=== PATIENT | male | born 1965 | race Caucasian/White ===

== ENCOUNTER 2019-05-02 07:47 | Emergency (ER) | payer MEDICAID, SELFPAY ==
[2019-05-02 07:55] VITALS: BP 136/69; PULSE 82; RESP 16; TEMP 37.4; O2SAT 98
--- NOTE | 2019-05-02 07:56 | ED.GENADUL_ITS ---
Discharge Plan Disposition Patient Disposition: HOME Condition: Fair Discharge Details Chief Complaint: Allergic Clinical Impression: Sting from hornet, wasp, or bee, Allergic reaction Primary Care Provider: Jack Talavera ED Provider: Tess Gómez Home Meds and New Rx's Prescriptions: New prednisone 20 mg tablet 40 mg PO DAILY Qty: 8 RF: 0 Continued indomethacin 50 mg capsule 50 mg PO BID RF: 0 lisinopril 40 MG tablet 1 tab PO DAILY Qty: 90 RF: 4 rosuvastatin [Crestor] 10 MG tablet 10 mg PO DAILY Qty: 90 RF: 3 metformin 500 MG tablet 500 mg PO DAILY Qty: 90 RF: 4 ibuprofen 800 MG tablet 800 mg PO TID Qty: 30 RF: 0 Discharge Instructions Instructions: General Allergic Reaction (ED) Additional Instructions: Encourage hydration. May try cool compresses to affected area. May continue with Benadryl to help with symptomatic management. Please use Benadryl as prescribed. Please follow-up with primary care next week for reevaluation. If you develop fever/chills, facial pain, difficulty breathing, shortness of breath, rash or other new/worsening symptoms please seek care urgently once again. Please follow your diabetic, starts to increase her glucose. Referrals: Jack Talavera [Primary Care Provider] - Medical Decision Making Patient is a 54-year-old male, accompanied by his , chief complaint of his stating he sustained yesterday. States he was stung twice by wasps in the left eye. The area of sting is visible today. States he took Benadryl yesterday and the swelling seemed to come down some. However, he woke this morning with increased swelling once again. Swelling extends from the inferior aspect of the left eye down the cheek. He is concerned that he feels some swelling in the left side of his neck. Is concerned that this may lead to potential airway compromise. On exam, patient does have notable swelling. The eye itself appears normal. Good extraocular movements. No area of fluctuance. Nontender. Afebrile. No stridor or wheezing. No rash elsewhere. Patient reports that he is a prediabetic and is on metformin. We did discuss plus minus of steroids. At this point, he will move forward with steroids but advised that he adhere to his diabetic diet strictly during this time we discussed this may cause elevation of his sugars. He is given strict return precautions. We will follow-up with primary care next week for reevaluation. All his questions and concerns were addressed and he is in agreement this plan. HPI General Mode of arrival: ambulatory . Date/Time Provider Initiated Documentation: 05/02/19 07:56 . Limitations to Documentation: no limitations . Information obtained by: patient, family and RN notes reviewed . History of Present Illness 54 year old M presents to the emergency department with the chief complaint of wasp sting under left eye, described as mild, with intensity rated at 3. Quality is described as aching, and is localized to the face. Patient reports no radiation. Patient started experiencing this day(s) (1) and it has been constant. No relieving factors improve symp epi(s), Other factors that worsen symptoms (swelling worse after laying supine last night) . Patient notes no other symptoms.; denies chest pain, fever/chills, nausea/vomiting, rash and shortness of breath. Patient did receive the following treatments prior to arrival, other (benadryl) Related Data Home Medications Medication Instructions Recorded Confirmed lisinopril 1 tab PO DAILY #90 tab-cap 08/28/16 05/02/19 rosuvastatin [Crestor] 10 mg PO DAILY #90 tab-cap 12/14/16 05/02/19 ibuprofen 800 mg PO TID #30 tab 04/24/17 05/02/19 metformin 500 mg PO DAILY #90 tab-cap 08/07/17 05/02/19 indomethacin 50 mg capsule 50 mg PO BID 06/04/18 05/02/19 prednisone 40 mg PO DAILY #8 tab 05/02/19 Previous Rx's Medication Instructions Recorded ibuprofen 800 mg PO TID #30 tab 04/24/17 metformin 500 mg PO DAILY #90 tab-cap 08/07/17 prednisone 40 mg PO DAILY #8 tab 05/02/19 Allergies Allergy/AdvReac Type Severity Reaction Status Date / Time hydrochlorothiazide Allergy Severe ITCHING Unverified 05/02/19 07:59 losartan Allergy Severe TONGUE Unverified 05/02/19 07:59 SWELLING Sulfa (Sulfonamide Allergy Severe lips swell Unverified 05/02/19 07:59 Antibiotics) amlodipine AdvReac Mild LEG Unverified 05/02/19 07:59 SWELLING metoprolol AdvReac Unknown FATIGUE Unverified 05/02/19 07:59 verapamil AdvReac Unknown LIGHT-HEADE Unverified 05/02/19 07:59 DNESS Review of Systems Constitutional Constitutional: Reports as per HPI, Denies chills, Denies fever(s) and Denies headache(s) Eyes Eyes: Reports as per HPI, Denies eye discharge and Denies irritation ENT Ears, Nose, Mouth, and Throat: Reports as per HPI and Denies headache(s) Cardiovascular Cardiovascular: Reports as per HPI, Denies chest pain and Denies dyspnea Respiratory Respiratory: Reports as per HPI and Denies dyspnea Gastrointestinal Gastrointestinal: Reports as per HPI, Denies abdominal pain, Denies change in bowel habits, Denies nausea and Denies vomiting Integumentary/Breasts Skin/Breast: Reports as per HPI, Denies rash, Reports skin pain and Reports skin swelling Neurologic Neurologic: Reports as per HPI and Denies headache(s) [facility] Medical History Cervical radicular pain Colon polyps DM (diabetes mellitus) Fatty liver Globus pharyngeus HTN (hypertension) EDMOND (obstructive sleep apnea) Reflux esophagitis TMJ (temporomandibular joint disorder) Surgical History Colonoscopy - MAC (08/31/16) 09/28/14 EGD - MAC (08/31/16) 09/28/14 lateral patellar release (~2007) Open Carpal Tunnel release (~06/2003) right Social History Smoking/Tobacco Use Status: Never Alcohol Intake: current Alcohol Intake frequency: a few times a week Drug use: Never Household members: spouse and children Housing: house Number of Children: 3 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 spot of sting, no fluctuance 2. area of swelling Mouth: oral mucosae normal, lip normal, tongue normal, oropharynx normal and moist mucous membranes Teeth and gingiva: dentition normal Throat: posterior oropharynx normal, tonsils normal and uvula midline Eyes General: appearance normal, both eyes and all related structures Neck Neck: normal visual inspection, full ROM, no lymphadenopathy and no meningeal signs Resp Effort & Inspection: normal respiratory effort, able to speak in complete sentences and no respiratory distress Auscultation: clear to auscultation bilaterally, no rales, no rhonchi and no wheezes Cardio Rate: regular rate Rhythm: regular rhythm Heart Sounds: S1 normal and S2 normal Skin General skin exam: no erythema Neuro General: alert and awake Cognition: normal cognition Speech: speech normal Gait: normal gait Psych Appearance: grossly normal and well kempt Mental Status: mental status grossly normal Speech and Movement: speech and movement normal
== END 2019-05-02 08:25 | disposition home or self-care (01) ==
PROVIDERS: Emergency Provider Physician Assistant; PCP Specialist/Technologist Athletic Trainer
DX: T63.461A Toxic effect of venom of wasps, accidental (unintentional), initial encounter (principal); R22.0 Localized swelling, mass and lump, head
CPT/HCPCS: 99283

== ENCOUNTER 2019-08-18 11:16 | Outpatient (CLI) | payer MEDICAID, SELFPAY ==
[2019-08-18 13:24] LABS: CREATININE 0.93 mg/dL (0.70-1.30); Calculated LDL 73 mg/dL; Cholesterol 142 mg/dL (<200); HDL Cholesterol 52 mg/dL (40-60); Triglyceride 87 mg/dL (<150)
[2019-08-18 14:40] LABS: Hemoglobin A1C 6.6 % (3.8-5.6)
[2019-08-19 12:21] LABS: PSA, Screening 0.4 ng/mL (0.0-3.5)
== END 2019-08-18 11:36 ==
PROVIDERS: PCP Nurse Practitioner; Visit Provider Nurse Practitioner
DX: E11.9 Type 2 diabetes mellitus without complications (principal); E78.5 Hyperlipidemia, unspecified; I10 Essential (primary) hypertension; Z12.5 Encounter for screening for malignant neoplasm of prostate
CPT/HCPCS: 36415; 80061; 84153; 82565; 83036; 84132

== ENCOUNTER 2020-09-14 03:42 | Outpatient (CLI) | payer MEDICAID, SELFPAY ==
[2020-09-14 13:21] LABS: ALT 34 U/L (16-63); AST 22 U/L (15-37); Albumin 3.9 g/dL (3.4-5.0); Alkaline Phosphatase 49 U/L (46-116); Bilirubin, Direct 0.14 mg/dL (0.00-0.20); Bilirubin, Total 0.6 mg/dL (0.2-1.0); Potassium 4.7 mmol/L (3.5-5.1); Total Protein 7.1 g/dL (6.4-8.2)
[2020-09-14 13:23] LABS: Hemoglobin A1C 6.5 % (<5.7)
[2020-09-14 13:38] LABS: Calculated LDL 78 mg/dL (<100); Cholesterol 135 mg/dL (<200); HDL Cholesterol 39 mg/dL (40-60); Triglyceride 92 mg/dL (<150)
== END 2020-09-14 03:43 | disposition home or self-care (01) ==
LOC: LOS 03:43
PROVIDERS: PCP Nurse Practitioner; Visit Provider Nurse Practitioner
DX: E78.00 Pure hypercholesterolemia, unspecified (principal); E11.9 Type 2 diabetes mellitus without complications; I10 Essential (primary) hypertension
CPT/HCPCS: 36415; 80061; 80076; 82565; 83036; 84132

== ENCOUNTER 2020-10-24 09:26 | Outpatient (CLI) | payer MEDICAID, SELFPAY ==
--- NOTE | 2020-10-24 08:00 | DI.RAD_ITS ---
EXAM: XR KNEE RT 4V AP,LAT,ROSIE,PAT CLINICAL HISTORY: right knee pain. TECHNIQUE: 2D digital imaging was performed. COMPARISON: CR RIGHT KNEE LIMITED 1 OR 2 VIEW from 03/06/2017 FINDINGS: There is no evidence of fracture nor prominent joint effusion. However, there has been progression o f degenerative changes, most evident in the medial compartment. Also moderate degenerative changes i n the patellofemoral compartment and mild degenerative changes in the lateral compartment. No osseous lesions. IMPRESSION: Progression of degenerative changes when compared to 2017. DATA REPOSITORY: RADIATION DOSE DELIVERED:
== END 2020-10-24 09:27 | disposition home or self-care (01) ==
LOC: DIORS 09:32
PROVIDERS: PCP Nurse Practitioner; Referring Provider Nurse Practitioner; Visit Provider Student in an Organized Health Care Education/Training Program
DX: M17.11 Unilateral primary osteoarthritis, right knee (principal)
CPT/HCPCS: 73564

== ENCOUNTER 2020-11-02 02:38 | Outpatient (CLI) | payer MEDICAID, SELFPAY ==
--- NOTE | 2020-11-02 07:00 | DI.MRI_ITS ---
EXAM: MR CERVICAL SPINE WO CLINICAL HISTORY: worsenIng neck pain and radiculopathy,CERVICAL STENOSIS,M48.02 TECHNIQUE: Multiplanar multisequence MRI of the cervical spine was performed without intravenous con trast. COMPARISON: CR CERV SP.WITH OBL OR FLEX/EXT from 09/14/2015 FINDINGS: Review of September 2015 plain films reveals left-sided Luschka joint osteophytes at C6-7 level and ch ronic degenerative disc disease changes at C4-5, C5-6, and C6-7. There are no more recent plain film s available time this MRI interpretation MRI FINDINGS: CERVICOMEDULLARY JUNCTION: Intact with no evidence of cerebellar tonsillar ectopia. No obvious abnor mality of the odontoid process. No evidence of Chiari 1 malformation. CERVICAL SPINAL CORD: There is no abnormal signal in the cervical spinal cord and no evidence of foca l cord atrophy nor focal cord swelling. OSSEOUS:There are no cervical fractures evident. No significant osseous lesions in the cervical vert ebrae. INDIVIDUAL LEVELS: C2-3: No disc herniation nor central canal stenosis. No foraminal stenosis. No prominent facet arthr opathy. C3-4: Relatively preserved disc height. Minimal annular bulging. No prominent disc herniation. Wayne tral canal dimensions within normal limits.Moderate facet arthropathy on the right side. Left facet joint unremarkable. Mild foraminal narrowing. C4-5: Mild disc space narrowing. Mild annular bulging.. No dominant disc herniation. Central canal dimensions are lower normal.Small left-sided Luschka joint osteophytes. Mild narrowing of the exiti ng left neural foramen. No facet arthropathy evident at this level. C5-6: Moderate disc space narrowing. Anterior osseous lipping. Posteriorly there is no evidence of significant disc herniation or central spinal canal stenosis. Left-sided Luschka joint osteophyte no jamil at this level with mild narrowing of the exiting left neural foramen. Right neural foramen is pa tent. Mild facet joint degenerative changes. C6-7: Advanced chronic disc space narrowing. Anterior osseous lipping. Broad annular bulging. Bila teral Luschka joint osteophytes. Mild central spinal canal stenosis. Mild degenerative changes in t he facet joints. C7-T1: No disc herniation nor central canal stenosis. Moderate bilateral facet arthropathy.Mild bilat eral foraminal stenosis. IMPRESSION: 1. Multilevel chronic degenerative disc disease as described individually above. 2. No dominant disc herniation. No prominent central canal stenosis. There is multilevel mild asymm etric foraminal stenosis as described above. The neural foraminal narrowing is due to combination of disc height loss and Luschka joint osteophytes and some facet degenerative changes. 3. There is straightening of the cervical curvature which is most probably related to chronic muscle spasm. DATA REPOSITORY:
== END 2020-11-02 02:58 ==
PROVIDERS: PCP Nurse Practitioner; Visit Provider Nurse Practitioner
DX: M48.02 Spinal stenosis, cervical region (principal); F41.9 Anxiety disorder, unspecified; M50.123 Cervical disc disorder at C6-C7 level with radiculopathy
CPT/HCPCS: 72141

== ENCOUNTER 2020-12-09 03:03 | Outpatient (CLI) | payer MEDICAID, SELFPAY ==
--- NOTE | 2020-12-09 07:00 | DI.CT_ITS ---
Exam(s) CT ABDOMEN PELVIS W EXAM: CT ABDOMEN PELVIS W CLINICAL HISTORY: abd pain luq ,llq,R10.9 TECHNIQUE: Imaging Protocol: Axial computed tomography images with coronal and sagittal reformatted images were created and reviewed CONTRAST MATERIAL: Intravenous: Omnipaque 350 Contrast volume:100 mL Oral: Yes COMPARISON: CT UPPER ABD WITH CONTRAST (P) from 02/28/2012 FINDINGS: The examination is limited due to patient motion artifact. ABDOMEN: Lung Bases: Scarring or atelectasis in the left lingula. Liver: Normal density. Stable 2.8 cm left hepatic cyst. Portal, Superior Mesenteric, and Splenic Veins: Unremarkable. Gallbladder and Biliary Tract: No radiodense calculus or dilation. Pancreas: Normal density, no abnormal calcifications or inflammatory process. Spleen: Normal. Adrenals: No masses seen. Kidneys: Normal size, contour and axis. No radiodense stones or obstructive uropathy. No masses seen. Abdominal Aorta: Abdominal portion non-dilated. Mild atherosclerosis. Bowel: No obstruction or bowel wall thickening. Appendix is unremarkable. Mild sigmoid diverticulosis , but no evidence of acute diverticulitis. Peritoneal Cavity: No ascites, collection or mesenteric inflammatory response. No free air. Lymph Nodes: Within normal limits. Bones: Within normal limits for the patient's age. Soft Tissues: Unremarkable. PELVIS: Bladder: Symmetric distention, no gross wall thickening. Reproductive Organs: There is asymmetric enlargement of the left seminal vesicle measuring 3.2 x 3.3 cm. The prostate gland is enlarged measuring 4.9 x 4 x 2.8 cm. Lymph Nodes: Within normal limits. Bones: Within normal limits for the patient's age. IMPRESSION: 1. Colonic diverticulosis but no evidence of acute diverticulitis. 2. No acute abdominal or pelvic process. 3. Prostatic enlargement and enlargement of the left seminal vesicle. Please correlate clinically. If further imaging is warranted an MRI. Incidental Findings RADIATION DOSE DELIVERED: 1,654.13mGy.cm Total DLP DATA REPOSITORY: All CT scans at this facility are submitted to the National Radiology Data Registry (NRDR) Dose Index Registry (DIR) with the [employer] (A[employer]). RADIATION OPTIMIZATION: All CT scans at this facility use at least one of these dose optimization te chniques: automated exposure control; mA and/or kV adjustment per patient size (includes targeted exa ms where dose is matched to clinical indication); or iterative reconstruction.
[2020-12-09] MEDS: Omnipaque 350 MG/ML 50 ML BTL IJ (08:38)
[2020-12-09] MEDS: Breeza Beverage 473 ML BTL PO (08:39)
[2020-12-09 08:50] LABS: CREATININE 0.9 mg/dL (0.70-1.30)
[2020-12-09] MEDS: Omnipaque 350 MG/ML 100 ML BTL IJ (09:46)
[2020-12-09] MEDS: Normal Saline - Diluent 50 ML VIAL IV (09:47)
== END 2020-12-09 03:23 ==
PROVIDERS: PCP Nurse Practitioner; Visit Provider Nurse Practitioner
DX: R10.12 Left upper quadrant pain (principal); R10.32 Left lower quadrant pain; N40.0 Benign prostatic hyperplasia without lower urinary tract symptoms; K57.30 Diverticulosis of large intestine without perforation or abscess without bleeding; N49.0 Inflammatory disorders of seminal vesicle
CPT/HCPCS: 74177; 82565; J3490; Q9967

== ENCOUNTER 2021-01-17 08:42 | Outpatient (CLI) | payer MEDICAID, SELFPAY ==
--- NOTE | 2021-01-17 06:00 | DI.RAD_ITS ---
Exam(s) XR PAIN CLINIC CERVICAL SP 2V EXAM: XR PAIN CLINIC CERVICAL SP 2V CLINICAL HISTORY: Dx :Cervical Spondylosis TECHNIQUE: 2D and realtime digital imaging was performed. CONTRAST MATERIAL: Refer to procedure report. COMPARISON: No exams were available for comparison FINDINGS: Fluoroscopy was provided for Dr. Frost during the performance of a cervical medial branch block. Suzette anna refer to the procedure report for complete details. Ka,r=12.54 mGy IMPRESSION:
[2021-01-17 08:55] VITALS: BP 141/71; PULSE 72; RESP 18; TEMP 36.7; O2SAT 98
[2021-01-17 09:49] VITALS: BP 134/75; PULSE 75; RESP 20; O2SAT 95
[2021-01-17] MEDS: Bupivacaine 0.5% Pres-Free 10 ML VIAL IJ (09:49)
[2021-01-17] MEDS: Omnipaque 240 MG/ML 50 ML BTL IJ (09:49)
--- NOTE | 2021-01-17 09:53 | PDOC.PAIN_ITS ---
Pain Clinic Procedure Note Procedure Note Procedure Note: CERVICAL MEDIAL BRANCH BLOCKS Korey Alejandre has been referred to the [facility] for cervical medial branch blocks. Pre-operative diagnosis: cervical spondylosis Post-operative diagnosis: same as above COMMENTS: patient has right sided neck pain that extends to the base of his skull that results in a occipital headache with radiation to right hinduism, as well as radiating down to right trapezius, periscapular region. patient was evaluated by Ms Grace Salas APRN in clinic and referred for diagnostic right C3, C4, C5, C6, C7 cervical medial branch nerve block. Patient was interviewed and the medical record reviewed. There were no medical, pharmacologic, radiographic or other structural contraindications to attempting fluoroscopically guided local anesthetic cervical medial branch blocks. Risks and expected side effects as well as potential benefit of the procedure were reviewed and voiced concerns addressed. The printed consent form was signed and witnessed. Standard time-out procedure was performed. Patient was placed in the prone position on the fluoroscopy table and automated blood pressure cuff and pulse oximeter applied. The skin entry points for approaching the anatomic target points of the segmental medial branches of right C3, C4, C5, C6, C7 were identified with fluoroscopy and marked. Following thorough Chlorhexadine preparation of the skin and draping and 1% lidocaine infiltration of the skin entry points and subcutaneous tissues, a 25 gauge spinal needle was placed under fluoroscopic guidance down on to the target point for each respective segmental medial branch. Position was confirmed in A/P and leteral views with 0.25ml of omnipaque 240 injected at each level. This revealed appropriate spread and no vascular uptake. At each point 0.3ml 0.5% bupivicaine was injected. Vital signs were stable throughout the procedure and were as recorded in the docflowsheet by the nursing staff. Follow up plans and appointments were discussed and patient was instructed to keep careful note of how the usual pain was modified by these injections. Specifically, the patient was asked to keep a pain diary for the next 24 hours using a numeric pain scale of 0-10 and report these results at the follow-up visit. Post procedure instruction was given as documented in the nursing documentation and having met discharge criteria, and was discharged from the [facility]. Based on the medial branches blocked today, if they patient has adequate relief and we are able to proceed to radiofrequency ablation, the treatment should result in the denervation of the right C3/4, C4/5, C5/6, C6/7. We would expect to denervate a total of 4 facets during the radiofrequency ablation. COMMENTS: patient tolerated procedure well. Pre-procedure pain level 6/10. post- procedure pain level 1/10. Agustin Frost MD Pain Management CC: Karo Vázquez, PhD BLUNGER MACHINE OPERATOR
== END 2021-01-17 08:43 | disposition home or self-care (01) ==
LOC: PC 08:42
PROVIDERS: PCP Nurse Practitioner; Visit Provider Internal Medicine
DX: M47.812 Spondylosis without myelopathy or radiculopathy, cervical region (principal)
CPT/HCPCS: 64490; 64491; 64492; 72040; Q9967

== ENCOUNTER 2021-02-09 08:47 | Outpatient (CLI) | payer MEDICAID, SELFPAY ==
--- NOTE | 2021-02-09 06:00 | DI.RAD_ITS ---
Exam(s) XR PAIN CLINIC CERVICAL SP 2V EXAM: XR PAIN CLINIC CERVICAL SP 2V CLINICAL HISTORY: Dx: Cervical Spondylosis TECHNIQUE: 2D and realtime digital imaging was performed. Radiologist not present. CONTRAST MATERIAL: None. COMPARISON: No exams were available for comparison FINDINGS: Fluoroscopy was provided for pain management therapy, apparently cervical medial branch block. . Pl ease refer to the procedure report for complete details. No submitted images. Please refer to procedure report or details. Cumulative dose: josh Tubbs=13.1 mGy Total fluoroscopy time 53.4 seconds IMPRESSION: RADIATION DOSE DELIVERED:
[2021-02-09 08:57] VITALS: BP 134/60; PULSE 71; RESP 20; TEMP 37.1; O2SAT 98
[2021-02-09 09:46] VITALS: BP 127/67; PULSE 74; RESP 19; O2SAT 98
--- NOTE | 2021-02-09 09:46 | PDOC.PAIN ---
Pain Clinic Procedure Note Procedure Note Procedure Note: CERVICAL MEDIAL BRANCH BLOCKS #2 Korey Alejandre has been referred to the [facility] for cervical medial branch blocks. COMMENTS: Pre-procedure pain VAS was 7/10. He did well with his first CMBB on 01/19/[address] Frost. Patient was interviewed and the medical record reviewed. There were no medical, pharmacologic, radiographic or other structural contraindications to attempting fluoroscopically guided local anesthetic cervical medial branch blocks. Risks and expected side effects as well as potential benefit of the procedure were reviewed and voiced concerns addressed. The printed consent form was signed and witnessed. Standard time-out procedure was performed. Patient was placed in the Left lateral decubitus position on the fluoroscopy table and automated blood pressure cuff and pulse oximeter applied. The skin entry points for approaching the anatomic target points of the segmental medial branches of Right C3, C4, C5, C6, and C7 were identified with fluoroscopy and marked. Following thorough Chlorhexadine preparation of the skin and draping and 1% lidocaine infiltration of the skin entry points and subcutaneous tissues, a 25 gauge spinal needle was placed under fluoroscopic guidance down on to the target point for each respective segmental medial branch. Position was confirmed in A/P and leteral views with 0.25ml of omnipaque 240 injected at each level. This revealed appropriate spread and no vascular uptake. At each point 0.3ml 2% Lidocaine was injected. Vital signs were stable throughout the procedure and were as recorded in the docflowsheet by the nursing staff. Follow up plans and appointments were discussed and patient was instructed to keep careful note of how the usual pain was modified by these injections. Specifically, the patient was asked to keep a pain diary for the next 24 hours using a numeric pain scale of 0-10 and report these results at the follow-up visit. Post procedure instruction was given as documented in the nursing documentation and having met discharge criteria, and was discharged from the [facility]. Based on the medial branches blocked today, if they patient has adequate relief and we are able to proceed to radiofrequency ablation, the treatment should result in the denervation of the right C3-C4, C4-C5, C5-C6, and C6-C7 FACET JOINTS. We would expect to denervate a total of 4 facets during the radiofrequency ablation. COMMENTS: Post-procedure pain VAS was 0/10. He will call back with his 1-4 hour post-procedure pain logs. Alvaro Romeo DO, MPH Pain Management CC: Karo Vázquez, PhD ANIMAL RIDE ATTENDANT
[2021-02-09] MEDS: Lidocaine 2% Pres-Free 5 ML VIAL IJ (09:47)
[2021-02-09] MEDS: Omnipaque 240 MG/ML 50 ML BTL IJ (09:48)
== END 2021-02-09 08:48 | disposition home or self-care (01) ==
LOC: PC 08:47
PROVIDERS: PCP Nurse Practitioner; Visit Provider Preventive Medicine Occupational Medicine
DX: M47.812 Spondylosis without myelopathy or radiculopathy, cervical region (principal)
CPT/HCPCS: 64490; 64491; 64492; 72040; Q9967

== ENCOUNTER 2021-09-22 02:10 | Outpatient (CLI) | payer MEDICAID, SELFPAY ==
[2021-09-22 07:27] LABS: Hemoglobin A1C 6.3 % (<5.7)
[2021-09-22 08:34] LABS: ALT 38 U/L (16-63); AST 16 U/L (15-37); Alkaline Phosphatase 38 U/L (46-116); Anion Gap 9.8 mmol/L (3-11); BUN 16 mg/dL (7-18); Bilirubin, Total 0.4 mg/dL (0.2-1.0); CO2 26.2 mmol/L (21.0-32.0); CREATININE 0.9 mg/dL (0.70-1.30); Calcium 8.9 mg/dL (8.5-10.1); Calculated LDL 82 mg/dL (<100); Chloride 103 mmol/L (98-107); Cholesterol 152 mg/dL (<200); Glucose 111 mg/dL (74-106); HDL Cholesterol 49 mg/dL (40-60); Potassium 4.7 mmol/L (3.5-5.1); Sodium 139 mmol/L (136-145); Triglyceride 106 mg/dL (<150)
[2021-09-25 09:31] LABS: PSA, Screening 0.4 ng/mL (0.0-3.5)
== END 2021-09-22 02:11 | disposition home or self-care (01) ==
LOC: LBO 02:11
PROVIDERS: PCP Nurse Practitioner; Visit Provider Nurse Practitioner
DX: E78.00 Pure hypercholesterolemia, unspecified (principal); E11.9 Type 2 diabetes mellitus without complications; I10 Essential (primary) hypertension; Z12.5 Encounter for screening for malignant neoplasm of prostate
CPT/HCPCS: 36415; 80053; 80061; 84153; 83036

== ENCOUNTER 2021-10-11 13:41 | Outpatient (CLI) | payer MEDICAID, SELFPAY ==
--- NOTE | 2021-10-11 06:00 | DI.RAD_ITS ---
Exam(s) XR PAIN CLINIC LUMBAR SP 2V EXAM: XR PAIN CLINIC LUMBAR SP 2V CLINICAL HISTORY: Dx: Lumbar Radiculopathy TECHNIQUE: 2D and realtime digital imaging was performed. COMPARISON: No exams were available for comparison FINDINGS: C-arm fluoroscopy was utilized by Dr. Romeo during apparent lumbar epidural injection. Hard copy show s needle placement and epidural injection at what appears to be the L5-S1 level. IMPRESSION: RADIATION DOSE DELIVERED: josh Tubbs=20.1 mGy
--- NOTE | 2021-10-11 06:00 | DI.RAD_ITS ---
Exam(s) XR PAIN CLINIC CERVICAL SP 2V EXAM: XR PAIN CLINIC CERVICAL SP 2V CLINICAL HISTORY: Dx: Cervical Spondylosis TECHNIQUE: 2D and realtime digital imaging was performed. COMPARISON: No exams were available for comparison FINDINGS: C-arm fluoroscopy utilized by Dr. Romeo during reported cervical radiofrequency ablation. Hard copy s how needle placement at what appear to be the see 2 3 and C3-4 levels. IMPRESSION: RADIATION DOSE DELIVERED: josh Tubbs=26.8 mGy
[2021-10-11 13:58] VITALS: BP 120/80; PULSE 75; RESP 20; TEMP 36.7; O2SAT 96
[2021-10-11] MEDS: fentaNYL 100 MCG/2 ML VIAL IVP (14:45)
[2021-10-11] MEDS: Midazolam 2 MG/2 ML VIAL IVP (14:46)
[2021-10-11] MEDS: Lactated Ringers 1,000 ML 80 ML IV (15:07)
--- NOTE | 2021-10-11 15:37 | PDOC.PAIN ---
Pain Clinic Procedure Note Procedure Note Procedure Note: Cervical Radiofrequency with Coolief Machine PROCEDURE NOTE Date of Service: October 11, 2021 Patient: Korey Alejandre Provider: Alvaro Romeo DO, MPH Pre Operative Diagnosis: Cervical Spondylosis without Myelopathy Post Operative Diagnosis: Same Pre-procedure pain: VAS 5/10 PROCEDURE: 1. Right C3-C4 facet joint radiofrequency denervation 2. Right C4-C5 facet joint radiofrequency denervation 3. Right C5-C6 facet joint radiofrequency denervation 4. Right C6-C7 facet joint radiofrequency denervation Korey Alejandre was brought to the operating room and placed on the exam table in a comfortable lateral recumbant position. The place for the needle placement was obtained by manual palpation as well as radiographic confirmation. The sterile field was prepped by chlorhexidine and sterile drapes. Local anesthesia, both superficial and deep was provided by local infiltration of 3 ml Lidocaine 1%. Using fluoroscopic guidance, A 17g 50 mm radiofrequency introducer needle with a 2 mm active tip was placed overlying the right C3 cervical vertebra from the lateral approach and was advanced until bony contact was felt with the articular pillar. Attempted aspiration revealed no blood or cerebrospinal fluid. Motor testing was then performed with 2.0 volts and no upper extremity motor stimulation was observed. 1 ml of 2% Lidocaine was injected through the RF needle. A radiofrequency lesion of the right medial branch of C3 was then performed at 80 degrees Celsius for 2 minutes and 30 seconds. The same procedure was repeated for RIGHT C4, C5, C6, and C7 medial branches. POST PROCEDURE EVALUATION: IMPRESSION: 1. Medication given is documented in the MAR 2. RTC as needed. Follow up plan: We will call the patient in 1-3 weeks. 3. Estimated Blood Loss: <5ml 4. Fluoroscopy time: Documented in the EMR Follow up plans and appointments were discussed with the Korey . Post procedure instruction was given as documented in nursing documentation and having met discharge criteria, Korey was discharged from the Pain Management Center. COMMENTS: No apparent complications. Post-procedure pain: VAS= 0/10. I personally performed this entire procedure. Alvaro Romeo DO, MPH Attending Physician [facility]
--- NOTE | 2021-10-11 15:42 | PDOC.PAIN_ITS ---
Pain Clinic Procedure Note Procedure Note Procedure Note: Lumbar Epidural Steroid Injection Procedure Note COMMENTS: Seen by his spine surgeon, who recommended this procedure. Dx: Lumbosacral radiculopathy Pre-procedure pain VAS = 6/10. Korey Alejandre has been referred to the [facility] for lumbar epidural steroid injection. The patient was greeted by the nurse who verified patients name and . Patient was then taken to the fluoroscopy suite. The patient was interviewed and the medial record reviewed. There were no medical, pharmacologic, radiographic, or other structural contraindications to attempting fluoroscopically guided lumbar epidural steroid injection. Risks and expected side effects as well as potential benefits of the procedure were reviewed and voiced concerns expressed. The patient consent form was signed and witnessed. Standard patient time-out procedure was performed. The patient was placed in the prone position on the fluoroscopy table and automated blood pressure cuff and pulse oximeter applied. The skin entry point for entering/approaching the epidural space at L5-S1 and marked. Following thorough chlorhexadine preparation of the skin and draping and 1% lidocaine infiltration of the skin entry point and subcutaneous tissues, a 18 gauge Touhy needle was placed under fluoroscopic guidance and with loss of resistance technique into the epidural space. Needle tip placement and depth were aided and confirmed by fluoroscopy. There was no paresthesia or return of blood or CSF through the needle. 1 cc's of Omnipaque 240 was injected with clear epidural s pread confirmed with fluoroscopy. 40mg depomedrol was injected. There was not any unusual discomfort expressed by Korey Alejandre. Patient's vital signs were stable throughout the procedure and were as recorded in nursing records. Follow up plans and appointments were discussed with patient. Post procedure instruction was given as documented in nursing records and having met discharge criteria and was discharged from the [facility]. COMMENTS: If this procedure is helpful, it can be completed up to 3 times per 12 months. Post-procedure pain VAS = 0/10. Alvaro Romeo DO, MPH [facility]
[2021-10-11] MEDS: Omnipaque 240 MG/ML 50 ML BTL IJ (15:53)
[2021-10-11] MEDS: Lidocaine 2% Pres-Free 5 ML VIAL IJ (15:53)
[2021-10-11] MEDS: methylPREDNISolone ACETATE 40 MG/ML VIAL (15:53)
[2021-10-11] MEDS: Dexamethasone Sod. Phos./Pres-Free 10 MG/ML VIAL IJ (15:54)
[2021-10-11] MEDS: Bupivacaine 0.5% Pres-Free 10 ML VIAL IJ (15:54)
== END 2021-10-11 13:42 | disposition home or self-care (01) ==
LOC: PC 13:41
PROVIDERS: PCP Nurse Practitioner; Visit Provider Preventive Medicine Occupational Medicine
DX: M54.17 Radiculopathy, lumbosacral region (principal); M47.812 Spondylosis without myelopathy or radiculopathy, cervical region
CPT/HCPCS: 64633; 64634; 62323; 72040; 72100; J1030; J2250; J3010; Q9967

== ENCOUNTER 2022-05-08 14:48 | Outpatient (CLI) | payer MEDICAID, SELFPAY ==
--- NOTE | 2022-05-08 14:00 | DI.RAD_ITS ---
Exam(s) XR SHOULDER LT COMPLETE 2+V EXAM: XR SHOULDER LT COMPLETE 2+V CLINICAL HISTORY: left shoulder pain. TECHNIQUE: 2D digital imaging was performed of the left shoulder. Two images were obtained. AP, Gr ashey, Y-view and axillary views were obtained. COMPARISON: No exams were available for comparison FINDINGS: BONES: No acute fracture is present. No bony destructive lesion is seen. JOINTS: No dislocation present. Moderate degenerative changes are seen at the acromioclavicular joint . Mild degenerative changes are seen at the glenohumeral joint. SOFT TISSUE: Normal. IMPRESSION: Degenerative changes of the left shoulder. DATA REPOSITORY: RADIATION DOSE DELIVERED:
== END 2022-05-08 14:49 | disposition home or self-care (01) ==
LOC: DIORS 14:48
PROVIDERS: PCP Nurse Practitioner; Referring Provider Nurse Practitioner; Visit Provider Student in an Organized Health Care Education/Training Program
DX: M19.012 Primary osteoarthritis, left shoulder (principal)
CPT/HCPCS: 73030

== ENCOUNTER → 2022-05-31 03:04 | Outpatient (CLI) | payer MEDICAID, SELFPAY ==
--- NOTE | 2022-05-31 07:00 | DI.MRI_ITS ---
Exam(s) MR UPPER JOINT LT WO CLINICAL HISTORY: LEFT SHOULDER PAIN,lt rotator cuff rita, m75.102. TECHNIQUE: Multiplanar multisequence MRI was performed. COMPARISON: None FINDINGS: MR examination of the shoulder was performed according to the usual protocol. There is no significant effusion of the glenohumeral joint. No fluid in the subacromial subdeltoid bu rsa. Bones and labrum: There are severe degenerative changes at the acromioclavicular joint with markedly of normal signal in adjacent bones period minimal superior impingement on supraspinatus noted period. Glenoid labrum appears intact. Rotator cuff: There is abnormal signal in the subscapularis tendon with probable tear in the multi p ennate insertion. There is abnormal signal associated also with the biceps anchor in this region per iod no gross overall retraction of the subscapularis noted but there is probably a full-thickness non retracted tear. There is abnormal signal in the rotator interval with no gross free fluid collection seen. Supraspinatus tendon shows mildly abnormal signal distally with the probable tiny partial thickness i nferior surface tear at the humeral footprint. Mildly abnormal signal in distal infraspinatus tendon noted as well. Unremarkable appearance of teres minor period. Biceps tendon and anchor: Biceps tendon and anchor show abnormal signal and borders of the tendon are poorly defined, partial-thickness tear not excluded but full-thickness retracted tear does not appea r to be present .. Biceps tendon is normally positioned in the bicipital groove. IMPRESSION: Abnormal signal in anterior structures with probable full-thickness non retracted subscapularis tear with associated abnormal signal of biceps anchor and proximal long head of the biceps tendon and abno rmal signal in rotator interval. Probable tiny undersurface tear of distal supraspinatus tendon. Severe DJD AC joint. DATA REPOSITORY:
== END ==
PROVIDERS: PCP Nurse Practitioner; Visit Provider Student in an Organized Health Care Education/Training Program
DX: M75.102 Unspecified rotator cuff tear or rupture of left shoulder, not specified as traumatic (principal); M19.012 Primary osteoarthritis, left shoulder
CPT/HCPCS: 73221

== ENCOUNTER 2022-08-10 06:56 | Day surgery (SDC) | payer MEDICAID, SELFPAY ==
[2022-08-10 07:17] VITALS: BP 151/80; PULSE 77; RESP 18; TEMP 36.7; O2SAT 97
[2022-08-10] MEDS: Lactated Ringers 1,000 ML 80 ML IV (07:32)
--- NOTE | 2022-08-10 08:11 | W.ANESPRE ---
General Info Date of Service Date Performed: 08/10/22 Height: 5 ft 7.5 in Weight: 119.3 kg Body Mass Index (BMI): 40.6 Surgical Procedure: Operation Date: 08/10/22 08:35 Proposed Procedure Side Surgeon p Harrison Haro MD Meds Allergies and Home Medications Allergies Allergy/AdvReac Type Severity Reaction Status Date / Time hydrochlorothiazide Allergy Severe ITCHING Verified 08/10/22 07:12 losartan Allergy Severe TONGUE Verified 08/10/22 07:12 SWELLING Sulfa (Sulfonamide Allergy Severe lips swell Verified 08/10/22 07:12 Antibiotics) amlodipine AdvReac Mild LEG Verified 08/10/22 07:12 SWELLING metoprolol AdvReac Unknown FATIGUE Verified 08/10/22 07:12 verapamil AdvReac Unknown LIGHT-HEADE Verified 08/10/22 07:12 DNESS Home Medication Medication Instructions Recorded vitamin B complex 1 tab PO DAILY 01/17/21 ibuprofen 800 mg tablet (IBU) 800 mg PO BID PRN 03/16/21 pantoprazole 40 mg tablet,delayed 40 mg PO DAILY #90 tabs 09/05/21 release metformin 750 mg tablet,extended 750 mg PO QPM #90 tabs 09/12/21 release 24 hr fluoxetine 40 mg capsule 40 mg PO DAILY #90 caps 11/09/21 rosuvastatin 10 mg tablet (Crestor) 10 mg PO DAILY #90 tab-caps 04/20/22 fluticasone propionate 50 1 spray intranasal DAILY #15.8 mL 06/12/22 mcg/actuation nasal spray,suspension (Flonase Allergy Relief) triamcinolone acetonide 0.1 % 1 applic topical TID #453.6 grams 06/12/22 topical cream bisacodyl 5 mg tablet,delayed 5 mg PO ONCE #4 tabs 07/30/22 release (Dulcolax (bisacodyl)) polyethylene glycol 3350 17 17 g PO ONCE #238 grams 07/30/22 gram/dose oral powder lisinopril 40 mg tablet 40 mg PO HS 08/09/22 Current Visit Medications: Current Medications Generic Name Dose Route Start Last Admin Trade Name Freq PRN Reason Stop Dose Admin Ringer's Solution 1,000 mls @ 80 mls/hr 08/10/22 06:00 08/10/22 07:32 IV 09/08/22 23:59 80 mls/hr INFUSION GIOVANNY Administration IV Miscellaneous Supplies 1 each 08/10/22 06:00 Iv Access IV 09/08/22 23:59 DIRECTED GIOVANNY Sodium Chloride 0 ml 08/10/22 06:00 Normal Saline Flush 10 Ml Syr IV 09/08/22 23:59 PRN PRN Sodium Chloride 0 ml 08/10/22 06:00 Normal Saline 10 Ml Vial IJ 09/08/22 23:59 DIRECTED PRN Sterile Water 0 ml 08/10/22 06:00 Water,Injection,Sterile 10 Ml Vial IJ 09/08/22 23:59 DIRECTED PRN PFSH Active Problems Active Problems: Problem Status Onset Code Anxiety F41.9 Diabetes mellitus 03/30/15 E11.9 Essential hypertension I10 Increased body mass index R63.8 EDMOND on CPAP 02/15/15 G47.33, Z99.89 Psoriasis 06/30/15 L40.9 Reflux esophagitis K21.0 Tubular adenoma of colon D12.6 Migraine headache without aura G43.009 Cervical stenosis of spinal canal M48.02 BPH (benign prostatic hyperplasia) N40.0 Depressed F32.9 Primary osteoarthritis of right knee M17.11 Cervical spondylosis without myelopathy M47.812 Hyperlipidemia E78.5 Left rotator cuff tear M75.102 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 Gout ELEVATED URIC ACID TMJ (temporomandibular joint disorder) Medical History Comments:: Daily THC; t-1 Surgical History Surgical History Colonoscopy - MAC (08/31/16) 09/28/16- Tubulovillious Adenoma EGD - MAC (08/31/16) 09/28/14 H/O right knee surgery History of back surgery lateral patellar release (~2007) Open Carpal Tunnel release (~06/2003) right and left Tobacco Smoking/Tobacco Use Status: Never Passive smoking exposure: Yes Second hand exposure: Yes Alcohol Alcohol Intake: current Alcohol intake frequency: a few times a month Alcohol type: beer Substance Use Substance use: Daily Substance use type: marijuana Details: Marijuana for pain relief at night. Vital Signs and Lab Results Vital Signs Most Recent Vital Signs in EMR: Most Recent Vital Signs Temp Pulse Resp BP Pulse Ox 36.7 C 77 18 151/80 H 97 08/10/22 07:17 08/10/22 07:17 08/10/22 07:17 08/10/22 07:17 08/10/22 07:17 Point of Care Results Point of Care Results: Finger Stick Blood Glucose 105 08/10/22 07:40 Lab Results Blood Type / Crossmatch: No Data to Display Complete Blood Count: No Data to Display Complete Metabolic Panel: No Data to Display Liver Function Panel: No Data to Display Coagulation Panel: No Data to Display Cardiac Panel: No Data to Display Arterial Blood Gas: No Data to Display Venous Blood Gas: No Data to Display Pancreas Panel: No Data to Display Thyroid Panel: No Data to Display Infectious Disease: No Data to Display Blood Cultures: No Data to Display Toxicology Panel: No Data to Display Imaging and Studies Imaging and Studies Study information below may be from another EMR and interpreted by another provider. Please see original notes in EMR for more complete details. Stress Test Summary: 11/21/2016: Impressions: Normal study after maximal exercise. Summary: 1. Myocardial perfusion imaging: No myocardial perfusion defects noted. 2. The calculated left ventricular ejection fraction after stress: 58%. LV global systolic function is normal. No left ventricular regional motion abnormality. 3. Stress ECG conclusions: The stress ECG is negative. Smith treadmill score: 9. This score predicts a low risk of cardiac events. 4. Stress: The target heart rate was achieved. There is a normal resting blood pressure with an appropriate response to stress. The patient experienced no chest pain during stress. Exercise capacity is average for age. Anesthesia Assessment and Plan Anesthesia History Personal History: No History of Anesthesia Complications Family History: No Family History of Anesthesia Complications Exercise Tolerance Exercise Tolerance: Metabolic Equivalents>4 Pertinent Negatives Pertinent Negatives: No Major Cardiovascular Symptoms or Complaints and No Major Pulmonary Symptoms or Complaints Cardiac & Pulmonary Exam Cardiac Exam: Normal S1/S2 Heart Sounds Pulmonary Exam: Clear Bilateral Breath Sounds Implantable Cardiac Device Does patient have a Pacemaker or an ICD?: No Airway Exam Known Difficult Airway: No Mallampati Class: 1 Mouth Opening: Normal (> 3cm) Thyromental Distance: Greater than 3 cm Neck Range of Motion: Full ROM Neck Circumference: Thick Teeth Condition: Normal Dentition ASA Classification ASA Score: ASA 3 Emergency Case?: No NPO Status NPO Status: NPO Clears >2 hours, Solids >8 hours Anesthesia Plan Resuscitation Status: Full Code Anesthesia Technique: General Anesthesia Airway Planned: Natural Airway Monitors Used: Standard Monitors Preoperative Comments:: Hx EDMOND, compliant with CPAP, also wears TMJ device nightly. Reports to past anesthetic concerns.
[2022-08-10 08:14] VITALS: BMI 40.6
--- NOTE | 2022-08-10 08:39 | BOWEL_PTH ---
PATIENT: Korey Alejandre LOC: [facility] U#:[id number] AGE/SX: 57/M ROOM: RE08/10/[address]: Jack Haro : 1965 BED: DIS: 08/10/2022 SPEC #: [id number] RECD: 08/10/22 12:58 STATUS: ROSI RE #: [id number] DANIEL: 08/10/22 08:[address]: Jack Haro DEPT: Surgical Specimen RECD BY: Sudha Rico ENTERED: 08/10/22 12:59 SP TYPE: Bowel OTHR DR: Moncho Hodges, [employer] Tissues: 1 - BIOPSY BOWEL 2 - BIOPSY BOWEL 3 - BIOPSY BOWEL Procedures: GROSS AND MICRO LEVEL 4 Comments: [id number]
[2022-08-10 09:06] VITALS: BP 121/66; PULSE 63; RESP 16; TEMP 36; O2SAT 95
--- NOTE | 2022-08-10 09:19 | W.ANESPOSTOP ---
Postoperative Evaluation Date, Time and Location Date Performed: 08/10/22 Time Performed: 09:17 Patient Location: Day Surgery Unit Vital Signs Most Recent Imported Vital Signs: Most Recent Vital Signs Temp Pulse Resp BP Pulse Ox 36 C L 63 16 121/66 95 08/10/22 09:06 08/10/22 09:06 08/10/22 09:06 08/10/22 09:06 08/10/22 09:06 Pain Score Most Recent Pain Score: Most Recent Pain Score Pain Level 0 08/10/22 09:06 Assessment Mental Status: Awake (Alert & Oriented to Patient Baseline) Airway and Respiratory Function: Patent airway with normal (patient baseline) respiratory exam Cardiovascular Function: Hemodynamically Stable Hydration Status: Adequately Hydrated Nausea & Vomiting: No Nausea or Vomiting Pain: Pt. Denies Any Pain Peripheral Nerve Block: Patient did not receive a nerve block
--- NOTE | 2022-08-10 09:20 | COLE_ITS ---
Date of service: 08/10/22 Time of Service: 09:20 Colonoscopy Report Procedure Description: Procedures performed: 1. Colonoscopy with snare polypectomy x3 2. Ablation/fulguration/destruction of polyps x1 3. Polypectomy with cold forceps technique x1 Preoperative diagnosis: Surveillance colonoscopy Postoperative diagnosis: Colon polyps, mild sigmoid diverticulosis Surgeon: Poncho Haro Anesthesia: Jessica Indication for procedure: Patient is a 57-year-old man with a personal history of tubulovillous polyps removed previously. He does not have a family history of colorectal cancer/polyps. He denies any new or changing symptoms.. Findings: Terminal ileum was normal. In the cecum a small 2-3 mm sessile polyp was removed with cold forceps technique. In the transverse colon there were 2 3-5 mm sessile polyps close to each other and they were both removed with hot snare technique. In the sigmoid colon there were again to, 3-5 mm sessile polyps removed with hot snare technique. Another smaller 1 was ablated with the tip of the hot snare. Very mild/minimal diverticular disease is present in the sigmoid colon only. Surveillance/follow-up recommendations: 3 years Complications: None Blood loss: Minimal Specimens:?? YES Quality of Prep:?? Good Procedure in detail: Written consent was obtained from the patient who was in agreement with the risks, benefits and indications of the procedure.? We went to the endoscopy suite and laid the patient in left lateral decubitus position.? Anesthesia was administered which was tolerated well.? A timeout was performed and when we are all in agreement we began the procedure. Digital rectal exam and visual examination was performed and within normal limits.? A well?lubricated colonoscope was advanced without difficulty all the way to the cecum identified by the ileocecal valve, and triangular folds and hussain endiceal orifice.? The terminal ileum was intubated and normal. It was then slowly withdrawn.?? Retroflexion was performed in the rectum.? The findings/interventions are noted above. The scope was then removed and the patient tolerated the procedure well and was then taken back to the PACU in hemodynamically stable condition.
[2022-08-10 09:38] VITALS: BP 121/74; PULSE 57; RESP 16; TEMP 36.3; O2SAT 97
== END 2022-08-10 09:50 | disposition home or self-care (01) ==
PROVIDERS: PCP Nurse Practitioner Family; Visit Provider Student in an Organized Health Care Education/Training Program
PROC: 0DJD8ZZ Inspection of Lower Intestinal Tract, Via Natural or Artificial Opening Endoscopic (ICD-10-PCS; CPT 45378; principal; 2022-08-10 08:30)
DX: Z12.11 Encounter for screening for malignant neoplasm of colon (principal); K63.5 Polyp of colon; K57.30 Diverticulosis of large intestine without perforation or abscess without bleeding
CPT/HCPCS: 45380; 45385; 88305

== ENCOUNTER 2022-09-20 11:22 | Day surgery (SDC) | payer MEDICAID, SELFPAY ==
[2022-09-20] VITALS (9 sets, daily range): BP systolic 109–156; BP diastolic 55–100; PULSE 58–70; RESP 15–25; TEMP 36.2–36.6; O2SAT 92–98; BMI 41.4
--- NOTE | 2022-09-20 09:42 | ANES.PREOP_ITS ---
General Info Height: 5 ft 7.5 in Weight: 121.563 kg Body Mass Index (BMI): 41.3 Surgical Procedure: Operation Date: 09/20/22 13:10 Proposed Procedure Side Surgeon p Shoulder Rotator Cuff Arthroscopic w/Extensive Debridement, Biceps Tenodesis, Subacromial Decompression, Distal Clavicle Excision Left Gelacio Schroeder MD Meds Allergies and Home Medications Allergies Allergy/AdvReac Type Severity Reaction Status Date / Time hydrochlorothiazide Allergy Severe ITCHING Verified 09/18/22 13:52 losartan Allergy Severe TONGUE Verified 09/18/22 13:52 SWELLING Sulfa (Sulfonamide Allergy Severe lips swell Verified 09/18/22 13:52 Antibiotics) amlodipine AdvReac Mild LEG Verified 09/18/22 13:52 SWELLING metoprolol AdvReac Unknown FATIGUE Verified 09/18/22 13:52 verapamil AdvReac Unknown LIGHT-HEADE Verified 09/18/22 13:52 DNESS Home Medication Medication Instructions Recorded vitamin B complex 1 tab PO DAILY 01/17/21 ibuprofen 800 mg tablet (IBU) 800 mg PO BID PRN 03/16/21 pantoprazole 40 mg tablet,delayed 40 mg PO DAILY #90 tabs 09/05/21 release metformin 750 mg tablet,extended 750 mg PO QPM #90 tabs 09/12/21 release 24 hr fluoxetine 40 mg capsule 40 mg PO DAILY #90 caps 11/09/21 rosuvastatin 10 mg tablet (Crestor) 10 mg PO DAILY #90 tab-caps 04/20/22 fluticasone propionate 50 1 spray intranasal DAILY #15.8 mL 06/12/22 mcg/actuation nasal spray,suspension (Flonase Allergy Relief) triamcinolone acetonide 0.1 % 1 applic topical TID #453.6 grams 06/12/22 topical cream bisacodyl 5 mg tablet,delayed 5 mg PO ONCE #4 tabs 07/30/22 release (Dulcolax (bisacodyl)) polyethylene glycol 3350 17 17 g PO ONCE #238 grams 07/30/22 gram/dose oral powder lisinopril 40 mg tablet 40 mg PO HS 08/09/22 Current Visit Medications: Current Medications Generic Name Dose Route Start Last Admin Trade Name Freq PRN Reason Stop Dose Admin Ringer's Solution 1,000 mls @ 30 mls/hr 09/20/22 06:00 IV 10/19/22 23:59 INFUSION GIOVANNY Cefazolin Sodium 3,000 mg/ 100 mls @ 200 mls/hr 09/20/22 06:00 Sodium Chloride IVPB 09/20/22 16:00 PREOP GIOVANNY IV Miscellaneous Supplies 1 each 09/20/22 06:00 Iv Access IV 10/19/22 23:59 DIRECTED GIOVANNY Sodium Chloride 0 ml 09/20/22 06:00 Normal Saline Flush 10 Ml Syr IV 10/19/22 23:59 PRN PRN Sodium Chloride 0 ml 09/20/22 06:00 Normal Saline 10 Ml Vial IJ 10/19/22 23:59 DIRECTED PRN Sterile Water 0 ml 09/20/22 06:00 Water,Injection,Sterile 10 Ml Vial IJ 10/19/22 23:59 DIRECTED PRN PFSH Active Problems Active Problems: Problem Status Onset Code Anxiety F41.9 Diabetes mellitus 03/30/15 E11.9 Essential hypertension I10 Increased body mass index R63.8 EDMOND on CPAP 02/15/15 G47.33, Z99.89 Psoriasis 06/30/15 L40.9 Reflux esophagitis K21.0 Tubular adenoma of colon D12.6 Migraine headache without aura G43.009 Cervical stenosis of spinal canal M48.02 BPH (benign prostatic hyperplasia) N40.0 Depressed F32.9 Primary osteoarthritis of right knee M17.11 Cervical spondylosis without myelopathy M47.812 Hyperlipidemia E78.5 Left rotator cuff tear M75.102 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 Gout ELEVATED URIC ACID TMJ (temporomandibular joint disorder) Surgical History Surgical History Colonoscopy - MAC (08/31/16) 09/28/16- Tubulovillious Adenoma 07/2022 Tubular adenoma EGD - MAC (08/31/16) 09/28/14 H/O right knee surgery History of back surgery lateral patellar release (~2007) Open Carpal Tunnel release (~06/2003) right and left Tobacco Smoking/Tobacco Use Status: Never Passive smoking exposure: Yes Second hand exposure: Yes Alcohol Alcohol Intake: current Alcohol intake frequency: a few times a month Alcohol type: beer Substance Use Substance use: Daily Substance use type: marijuana Vital Signs and Lab Results Lab Results Blood Type / Crossmatch: No Data to Display Complete Blood Count: No Data to Display Complete Metabolic Panel: No Data to Display Liver Function Panel: No Data to Display Coagulation Panel: No Data to Display Cardiac Panel: No Data to Display Arterial Blood Gas: No Data to Display Venous Blood Gas: No Data to Display Pancreas Panel: No Data to Display Thyroid Panel: No Data to Display Infectious Disease: No Data to Display Blood Cultures: No Data to Display Toxicology Panel: No Data to Display Imaging and Studies Imaging and Studies Study information below may be from another EMR and interpreted by another provider. Please see original notes in EMR for more complete details. Stress Test Summary: 11/21/2016: Impressions: Normal study after maximal e xercise. Summary: 1. Myocardial perfusion imaging: No myocardial perfusion defects noted. 2. The calculated left ventricular ejection fraction after stress: 58%. LV global systolic function is normal. No left ventricular regional motion abnormality. 3. Stress ECG conclusions: The stress ECG is negative. Smith treadmill score: 9. This score predicts a low risk of cardiac events. 4. Stress: The target heart rate was achieved. There is a normal resting blood pressure with an appropriate response to stress. The patient experienced no chest pain during stress. Exercise capacity is average for age. Anesthesia Assessment and Plan Anesthesia History Personal History: No History of Anesthesia Complications Family History: No Family History of Anesthesia Complications Exercise Tolerance Exercise Tolerance: Metabolic Equivalents>4 Pertinent Negatives Pertinent Negatives: No Symptoms of GERD, No Major Cardiovascular Symptoms or Complaints and No History of CVA/TIA Cardiac & Pulmonary Exam Cardiac Exam: Normal S1/S2 Heart Sounds Pulmonary Exam: Clear Bilateral Breath Sounds Cardiac and Pulmonary Comment:: EDMOND with CPAP Implantable Cardiac Device Does patient have a Pacemaker or an ICD?: No Airway Exam Known Difficult Airway: No Mallampati Class: 1 Mouth Opening: Normal (> 3cm) Thyromental Distance: Greater than 3 cm Neck Range of Motion: Full ROM Neck Circumference: Thick Teeth Condition: Normal Dentition ASA Classification ASA Score: ASA 3 Emergency Case?: No NPO Status NPO Status: NPO Clears >2 hours, Solids >8 hours Anesthesia Plan Resuscitation Status: Full Code Anesthesia Technique: General Anesthesia Airway Planned: Endotracheal Tube Pain Management: Surgeon and patient request nerve block Monitors Used: Standard Monitors
--- NOTE | 2022-09-20 12:10 | W.ANESPRE ---
General Info Date of Service Date Performed: 09/20/22 Height: 5 ft 7.5 in Weight: 121.9 kg Body Mass Index (BMI): 41.4 Surgical Procedure: Operation Date: 09/20/22 13:10 Proposed Procedure Side Surgeon p Shoulder Rotator Cuff Arthroscopic w/Extensive Debridement, Biceps Tenodesis, Subacromial Decompression, Distal Clavicle Excision Left Gelacio Schroeder MD Meds Allergies and Home Medications Allergies Allergy/AdvReac Type Severity Reaction Status Date / Time hydrochlorothiazide Allergy Severe ITCHING Verified 09/20/22 11:31 losartan Allergy Severe TONGUE Verified 09/20/22 11:31 SWELLING Sulfa (Sulfonamide Allergy Severe lips swell Verified 09/20/22 11:31 Antibiotics) amlodipine AdvReac Mild LEG Verified 09/20/22 11:31 SWELLING metoprolol AdvReac Unknown FATIGUE Verified 09/20/22 11:31 verapamil AdvReac Unknown LIGHT-HEADE Verified 09/20/22 11:31 DNESS Home Medication Medication Instructions Recorded vitamin B complex 1 tab PO DAILY 01/17/21 pantoprazole 40 mg tablet,delayed 40 mg PO DAILY #90 tabs 09/05/21 release metformin 750 mg tablet,extended 750 mg PO QPM #90 tabs 09/12/21 release 24 hr fluoxetine 40 mg capsule 40 mg PO DAILY #90 caps 11/09/21 rosuvastatin 10 mg tablet (Crestor) 10 mg PO DAILY #90 tab-caps 04/20/22 fluticasone propionate 50 1 spray intranasal DAILY #15.8 mL 06/12/22 mcg/actuation nasal spray,suspension (Flonase Allergy Relief) triamcinolone acetonide 0.1 % 1 applic topical TID #453.6 grams 06/12/22 topical cream bisacodyl 5 mg tablet,delayed 5 mg PO ONCE #4 tabs 07/30/22 release (Dulcolax (bisacodyl)) polyethylene glycol 3350 17 17 g PO ONCE #238 grams 07/30/22 gram/dose oral powder lisinopril 40 mg tablet 40 mg PO HS 08/09/22 aspirin 81 mg tablet,delayed 81 mg PO DAILY prevent blood clot 09/20/22 release 7 days #7 tabs naproxen 250 mg tablet 250 - 500 mg PO BID PRN #40 tabs 09/20/22 oxycodone 5 mg tablet 5 - 10 mg PO Q4H PRN moderate to 09/20/22 severe pain #18 tabs Current Visit Medications: Current Medications Generic Name Dose Route Start Last Admin Trade Name Wendy PRN Reason Stop Dose Admin Ringer's Solution 1,000 mls @ 30 mls/hr 09/20/22 06:00 IV 10/19/22 23:59 INFUSION GIOVANNY Cefazolin Sodium 3,000 mg/ 100 mls @ 200 mls/hr 09/20/22 06:00 Sodium Chloride IVPB 09/20/22 16:00 PREOP GIOVANNY IV Miscellaneous Supplies 1 each 09/20/22 06:00 Iv Access IV 10/19/22 23:59 DIRECTED GIOVANNY Sodium Chloride 0 ml 09/20/22 06:00 Normal Saline Flush 10 Ml Syr IV 10/19/22 23:59 PRN PRN Sodium Chloride 0 ml 09/20/22 06:00 Normal Saline 10 Ml Vial IJ 10/19/22 23:59 DIRECTED PRN Sterile Water 0 ml 09/20/22 06:00 Water,Injection,Sterile 10 Ml Vial IJ 10/19/22 23:59 DIRECTED PRN PFSH Active Problems Active Problems: Problem Status Onset Code Anxiety F41.9 Diabetes mellitus 03/30/15 E11.9 Essential hypertension I10 Increased body mass index R63.8 EDMOND on CPAP 02/15/15 G47.33, Z99.89 Psoriasis 06/30/15 L40.9 Reflux esophagitis K21.0 Tubular adenoma of colon D12.6 Migraine headache without aura G43.009 Cervical stenosis of spinal canal M48.02 BPH (benign prostatic hyperplasia) N40.0 Depressed F32.9 Primary osteoarthritis of right knee M17.11 Cervical spondylosis without myelopathy M47.812 Hyperlipidemia E78.5 Left rotator cuff tear M75.102 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 Gout ELEVATED URIC ACID TMJ (temporomandibular joint disorder) Medical History Comments:: Uses marijuana nightly for pain Surgical History Surgical History (Updated 09/20/22 @ 11:37 by Mabel Ramos RN) Colonoscopy - [facility] (08/31/16) 09/28/16- Tubulovillious Adenoma 07/2022 Tubular adenoma EGD - [facility] (08/31/16) 09/28/14 H/O right knee surgery History of back surgery lateral patellar release (~2007) left Open Carpal Tunnel release (~06/2003) right and left Tobacco Smoking/Tobacco Use Status: Never Passive smoking exposure: Yes Second hand exposure: Yes Alcohol Alcohol Intake: current Alcohol intake frequency: a few times a month Alcohol type: beer Substance Use Substance use: Daily Substance use type: marijuana Vital Signs and Lab Results Vital Signs Most Recent Vital Signs in EMR: Most Recent Vital Signs Temp Pulse Resp BP Pulse Ox 36.6 C 70 18 154/100 H 96 09/20/22 11:25 09/20/22 11:25 09/20/22 11:25 09/20/22 11:25 09/20/22 11:25 Point of Care Results Point of Care Results: Finger Stick Blood Glucose 93 09/20/22 11:33 Lab Results Blood Type / Crossmatch: No Data to Display Complete Blood Count: No Data to Display Complete Metabolic Panel: No Data to Display Liver Function Panel: No Data to Display Coagulation Panel: No Data to Display Cardiac Panel: No Data to Display Arterial Blood Gas: No Data to Display Venous Blood Gas: No Data to Display Pancreas Panel: No Data to Display Thyroid Panel: No Data to Display Infectious Disease: No Data to Display Blood Cultures: No Data to Display Toxicology Panel: No Data to Display Imaging and Studies Imaging and Studies Study information below may be from another EMR and interpreted by another provider. Please see original notes in EMR for more complete details. Stress Test Summary: 11/21/2016: Impressions: Normal study after maximal exercise. Summary: 1. Myocardial perfusion imaging: No myocardial perfusion defects noted. 2. The calculated left ventricular ejection fraction after stress: 58%. LV global systolic function is normal. No left ventricular regional motion abnormality. 3. Stress ECG conclusions: The stress ECG is negative. Smith treadmill score: 9. This score predicts a low risk of cardiac events. 4. Stress: The target heart rate was achieved. There is a normal resting blood pressure with an appropriate response to stress. The patient experienced no chest pain during stress. Exercise capacity is average for age. Anesthesia Assessment and Plan Anesthesia History Personal History: No History of Anesthesia Complications Family History: No Family History of Anesthesia Complications Exercise Tolerance Exercise Tolerance: Metabolic Equivalents>4 Pertinent Negatives Pertinent Negatives: No Symptoms of GERD, No Major Cardiovascular Symptoms or Complaints and No History of CVA/TIA Cardiac & Pulmonary Exam Cardiac Exam: Normal S1/S2 Heart Sounds Pulmonary Exam: Clear Bilateral Breath Sounds Implantable Cardiac Device Does patient have a Pacemaker or an ICD?: No Airway Exam Known Difficult Airway: No Mallampati Class: 3 Mouth Opening: Normal (> 3cm) Thyromental Distance: Greater than 3 cm Neck Range of Motion: Limited ROM Neck Circumference: Thick Teeth Condition: Normal Dentition ASA Classification ASA Score: ASA 3 Emergency Case?: No NPO Status NPO Status: NPO Clears >2 hours, Solids >8 hours Anesthesia Plan Resuscitation Status: Full Code Anesthesia Technique: General Anesthesia Airway Planned: Endotracheal Tube Pain Management: Surgeon and patient request nerve block Monitors Used: Standard Monitors Preoperative Comments:: Hx htn, edmond compliant with cpap. Cervical radiculopathy with pain radiating down left arm with extreme neck flexion. Patient agreed to left brachial plexus block and due to work on clavicle added a superficial cervical plexus on the same side. Will proceed with glidescope.
[2022-09-20] MEDS: Lactated Ringers 1,000 ML 30 ML IV (12:15)
--- NOTE | 2022-09-20 12:38 | W.PM.OP ---
Date of service: 09/20/22 Time of Service: 13:00 Operative Note Operative Note DATE OF PROCEDURE: 09/20/22 PRE-OP DIAGNOSIS: Left: 1. Rotator cuff tear 2. LHB tendinopathy 3. Bursitis 4. AC joint arthritis POST-OP DIAGNOSIS: same PROCEDURE: Left: 1. Rotator cuff repair, CPT# 51924. This involved repair of the subscapularis using anchor and suture to reattach the rotator cuff back to the upper footprint of the lesser tuberosity. 2. Arthroscopic biceps tenodesis, CPT# 75052. This involved arthroscopically suturing and reattaching the long head of the biceps tendon to the proximal humerus at the superior margin of the bicipital groove with a screw at the correct tension. 3. Extensive debridement, CPT# 24678. This involved using arthroscopic hand instruments, power instruments, and radiofrequency instruments to release the long head of the biceps tendon and debride areas of labral tearing, SLAP tearing, synovitis, and chondromalacia about the biceps groove and lessor tuberosity within the glenohumeral joint anteriorly, superiorly and posteriorly. 4. Subacromial decompression with partial acromioplasty, CPT# 62021. This involved using arthroscopic power instruments and a radiofrequency wand to complete a bursectomy and smooth the undersurface of the acromion. 5. Arthroscopic distal clavicle excision, CPT# 34045. This involved arthroscopically exposing the underside of the acromioclavicular joint, smoothing out bone spurs, and removing approximately 5 mm of the distal clavicle so there was no bone left engaging the acromion. The assistant men's lacrosse coach was medically required in order to help assist in techniques above, which require positioning the arm, holding the arthroscope, and manipulating multiple instruments and sutures at the same time. This cannot be done without the help of an experienced assistant men's lacrosse coach. SURGEON: Gelacio Schroeder TRACK INSPECTING SUPERVISOR: Fallon Morel ANESTHESIA TYPE: Local By Surgeon, General LMA/ETT and Primary Nerve Block Refer to Anesthesia Record ESTIMATED BLOOD LOSS: 5 PATHOLOGY: none sent COMPLICATIONS: None Patient was transported to: PACU Patient's condition: stable Implants: Arthrex: 4.75mm SwiveLocks x 1 Indications: The patient was diagnosed with the above conditions and appropriately indicated for surgical intervention. Please see complete medical record for details. Findings: Exam under anesthesia: Full range of motion, no instability Glenohumeral joint: Significant synovitis and degenerative type pain?labral tearing and fraying. High-grade partial tearing intra-articular biceps segment with unstable biceps anchor SLAP tear. Low-grade partial anterior supraspinatus articular tearing. Intact infraspinatus. High?grade partial subscapularis tear with chronic fibrinous changes about the exposed upper portion of the lesser tuberosity. Retraction of the subscapularis and [facility] L with disruption of the biceps sling and medial biceps subluxation. Subacromial space: Significant bursitis. Moderate grade diffuse bursal rotator cuff fraying without melanie tearing, thinning, or structural tearing. Hypertrophic arthritic distal clavicle impinging on the rotator cuff and acromion. Procedure Description: In the operating room, general anesthesia was induced. Bilateral shoulders were examined. The patient was positioned in the beachchair position. All bony prominences were well-padded. Preoperative antibiotics were administered. The shoulder was prepped and draped in the usual sterile fashion. The correct patient, procedure, and side of the procedure were all verified prior to incision. Starting through the posterior portal a standard complete diagnostic arthroscopy was performed of the glenohumeral joint including inspection of the long head of the biceps, anterior and superior labrum, subscapularis tendon, supraspinatus and infraspinatus tendons, and axillary recess. The glenoid and humeral head cartilage as well as the posterior labrum were inspected from an anterior viewing portal. Significant findings and interventions noted above. Special attention was paid to contour and smooth in the anterior and posterior labrum as well as debriding the SLAP tear to stable tissue margins. Significant synovitis was resected superiorly, posteriorly, and in the disrupted anterior rotator interval space. The MGHL was partially released to optimize excursion and prevent stiffness after subscapularis repair. A rigid cannula was inserted anteriorly directing the upper exposed area of the lesser tuberosity just medial to the superior aspect of the bicipital groove. The exposed footprint was prepped to optimize bone tendon healing with various rasps, elevators and power instruments. An all-arthroscopic suprapectoral biceps tenodesis was performed through an anterior portal using a Loop N Tack method with a SutureTape FiberLink cinched around and through the tendon. The biceps was tenotomized from the labrum and fixated with a knotless SwiveLock suture anchor at the superior margin of the bicipital groove. Next, the subscapularis tendon was appropriately released and mobilized to the prepared lesser tuberosity. The 90 degree lasso was used to shuttle the repair suture from the knotless swivel lock anchor in a simple stitch fashion through the upper and lateral body of the tendon at the appropriate level relative to the tear and plan repair. The repair suture was shuttled through the knotless repair mechanism and appropriate tension placed on the subscapularis taking care not to restrict external rotation with repair done in neutral position. There is nice approximation of the majority of the subscapularis especially the upper margin to the lesser tuberosity. The repair was stable through external rotation. There was appropriate recreation now of the biceps sling SG HL and CHF after both subscapularis and biceps repairs. Starting through the posterior portal, the arthroscope was directed into the subacromial space. A lateral 50 yard line lateral portal was created. A combination of power instruments and a radiofrequency ablator were used to debride bursitis anteriorly, posteriorly, and laterally as well as expose and smooth bone spurring on the undersurface of the acromion and release bone marrow factors to optimize healing of the partial supraspinatus rotator cuff tear. The coracoacromial ligament was partially released. The bursectomy was completed viewing laterally and working from posteriorly and the rotator cuff was thoroughly inspected with findings noted above. The anterior portal was redirected towards the undersurface of the AC joint. A shaver and electrocautery device were used to clear soft tissue from the undersurface of the AC joint. The distalmost 5 mm of the distal clavicle was then removed and smoothed using a bur contouring it over the rotator cuff and resecting adjacent acromial bone spurs as well. Care was taken to ensure that proper amount of bone was removed and there was no engaging bone left behind especially superiorly. The supraspinatus and infraspinatus was thoroughly inspected and not demonstrate any areas of significant thinning or structural tearing to necessitate repair. The shoulder was drained of arthroscopic fluid. All portal sites were copiously irrigated. These incisions were closed using 3-0 Monocryl in a buried fashion and then covered with Mastisol, Steri-Strips, Xeroform, dry gauze, and ABDs. The dressings were covered and secured with Medipore tape. The operative extremity was placed into a sling for immobilization. The patient awoke from anesthesia without complication and was transferred to the recovery room in a stable condition.
--- NOTE | 2022-09-20 12:39 | W.PM.DSUDISC ---
Date of service: 09/20/22 Time of Service: 16:00 Discharge Plan Disposition Patient Disposition: Home Discharge Details Attending Provider: Gelacio Schroeder Primary Care Provider: Moncho Hodges Home Meds and New Rx's Prescriptions: New aspirin 81 mg tablet,delayed release (DR/EC) 81 mg PO DAILY 7 Days Qty: 7 0RF oxycodone 5 mg tablet 5 - 10 mg PO Q4H MDD 30 mg PRN (Reason: moderate to severe pain) Qty: 18 0RF naproxen 250 mg tablet 250 - 500 mg PO BID PRNQty: 40 0RF Rx Instructions: take with a meal Continued metformin 750 mg tablet extended release 24 hr 750 mg PO QPM Qty: 90 4RF fluoxetine 40 mg capsule 40 mg PO DAILY Qty: 90 4RF bisacodyl [Dulcolax (bisacodyl)] 5 mg tablet,delayed release (DR/EC) 5 mg PO ONCE Qty: 4 0RF Rx Instructions: Take according to provider's instructions for colonoscopy prep. polyethylene glycol 3350 17 gram/dose powder 17 g PO ONCE Qty: 238 0RF Rx Instructions: To be taken as directed by prescriber's office for colonoscopy prep. pantoprazole 40 mg tablet,delayed release (DR/EC) 40 mg PO DAILY Qty: 90 3RF rosuvastatin [Crestor] 10 mg tablet 10 mg PO DAILY Qty: 90 3RF Rx Instructions: replaces Pravastatin/take one tablet daily fluticasone propionate [Flonase Allergy Relief] 50 mcg/actuation spray,suspension 1 spray intranasal DAILY Qty: 15.8 4RF Rx Instructions: administer into each nostril triamcinolone acetonide 0.1 % cream 1 applic topical TID Qty: 453.6 0RF vitamin B complex Tablet 1 tab PO DAILY lisinopril 40 mg tablet 40 mg PO HS Discontinued ibuprofen [IBU] 800 mg tablet 800 mg PO BID PRN Discharge Instructions Additional Instructions: Surgery: Left shoulder arthroscopy with rotator cuff repair (subscapularis only), biceps tenodesis, extensive debridement, distal clavicle excision, and subacromial decompression. Activity: For 6 weeks, you should keep your arm at your side in a neutral position at all times except for physical therapy. Do not try to lift or raise your arm using your own muscles. You should use the sling whenever you are out of the house. You may have to adjust the abduction pillow or remove it for comfort. At home it is best to remove the sling and rest the arm on a pillow at your side or support the operative side with your other hand. You may allow the arm to dangle at your side. A physical therapy prescription will be sent electronically to begin in about 3 weeks. Prescriptions: Aspirin 81 mg take 1 daily to prevent a blood clot for 7 days Naproxen 250 mg take 1-2 every 12 hours with a meal as needed for moderate pain (do not use at same time as ibuprofen) Oxycodone 5 mg take 1-2 every 4-6 hours as needed for severe pain You may use [id number] Tylenol (acetaminophen) as needed for mild pain. These pain medications may be taken all at once or in different combinations as needed. Also, recommend Colace (docusate) as a stool softener as surgery and pain medicine cause constipation. You may try [id number] diphenhydramine (Benadryl) 25-50 mg nightly as a sleep aid Dressings: Remove shoulder bandage after 3 days. Leave the sticky Steri-Strips in place until they fall off or remove them after you shower. Cover the incisions with Band-Aids or leave them open to air. You may shower after 5 days. Follow-up: 10-[address] Schroeder You may take off the leg compression stockings this evening at home. You may also leave them on a few days longer if you have a history of leg swelling or edema. Let us know right away if you develop any redness, drainage, fevers, chest pain, or trouble breathing. Do not drink alcohol or drive for at least 24 hours after anesthesia. Please call the office during business hours with any questions or concerns. Discharge Orders Discharge Orders: Discharge Order (Routine); Ordered 09/20/22 Ordered By: Gelacio Schroeder DS: Diagnosis Discharge Diagnosis (1) Arthritis of left acromioclavicular joint: Status: Acute (2) Left rotator cuff tear: Status: Acute (3) Tendinitis of long head of biceps brachii of left shoulder: Status: Acute
[2022-09-20] MEDS: ceFAZolin 3,000 MG in Normal Saline 100 ML 200 MG IVPB (13:03)
--- NOTE | 2022-09-20 13:47 | W.ANESNERVE ---
Nerve Block Single Injection Procedure Date and Time Date Performed: 09/20/22 Procedure Start: 12:29 Location Where Procedure Performed Procedure Location: Day Surgery Unit Reason Performed: Postoperative Analgesia Requesting Provider: Gelacio Schroeder Timeout Performed Timeout Performed: Yes Monitoring Used ECG, Blood Pressure, SpO2 and ETCO2 Sterility Sterility: Hand Hygiene, Surgical Cap, Surgical Mask, Sterile Gloves and Chlorhexidine Sedation Given During Procedure Sedation Given (Indicate Dose Given): Versed IV Dose:: 2 mg Patient Mental Status Patient Mental Status: Awake Nerve Block 1st Nerve Block: Laterality: Left Block Type: Interscalene Ultrasound Image Saved?: Yes Needle / Catheter Used: 100mm SonoPlex II Local Anesthetic Bolus (Indicate Dose Given): Lidocaine used for local infiltration of skin, Injected in 3-5ml increments after negative blood aspiration, Bupivacaine 0.5% Dose:: 7.5 ml and Exparel Dose:: 7.5 ml Additives (Indicate Dose Given): None Ultrasound: Sterile probe cover and gel used Nerve Stimulator: Not Used Paresthesia: None Procedure Tolerated: No Complications and Patient tolerated well Procedure Outcome: Successful Performed By: Yashira Bowen Supervised By: Alvaro Milligan 2nd Nerve Block: Laterality: Left Block Type: Superficial Cervical Plexus Ultrasound Image Saved?: Yes Needle / Catheter Used: 100mm SonoPlex II Local Anesthetic Bolus (Indicate Dose Given): Lidocaine used for local infiltration of skin, Injected in 3-5ml increments after negative blood aspiration, Bupivacaine 0.5% Dose:: 2.5 ml and Exparel Dose:: 2.5 ml Additives (Indicate Dose Given): None Ultrasound: Sterile probe cover and gel used Nerve Stimulator: Not Used Paresthesia: None Procedure Tolerated: No Complications and Patient tolerated well Procedure Outcome: Successful Performed By: Yashira Bowen Supervised By: Alvaro Milligan
[2022-09-20] MEDS: EPINEPHrine 30 MG/30 ML VIAL (14:37)
[2022-09-20] MEDS: Normal Saline 10 ML VIAL IJ (15:26)
[2022-09-20] MEDS: HYDROmorphone 2 MG/ML SYR IVP ×2 (15:26→15:34)
[2022-09-20] MEDS: fentaNYL 100 MCG/2 ML VIAL IVP (15:44)
[2022-09-20] MEDS: oxyCODONE 5 MG TAB PO (16:28)
--- NOTE | 2022-09-20 16:40 | W.ANESPOSTOP ---
Postoperative Evaluation Date, Time and Location Date Performed: 09/20/22 Time Performed: 16:40 Patient Location: Day Surgery Unit Vital Signs Most Recent Imported Vital Signs: Most Recent Vital Signs Temp Pulse Resp BP Pulse Ox 36.3 C L 63 16 156/97 H 94 09/20/22 16:33 09/20/22 16:33 09/20/22 16:33 09/20/22 16:33 09/20/22 16:33 Pain Score Most Recent Pain Score: Most Recent Pain Score Pain Level 8 09/20/22 16:33 Assessment Mental Status: Awake (Alert & Oriented to Patient Baseline) Airway and Respiratory Function: Patent airway with normal (patient baseline) respiratory exam Cardiovascular Function: Hemodynamically Stable Hydration Status: Adequately Hydrated Nausea & Vomiting: No Nausea or Vomiting Pain: Pain is tolerable per patient (Recently treated with oxycodone) Peripheral Nerve Block: Regional nerve block not resolved at time of post operative discharge Teaching Patient Teaching: Discussed Safe Use of Pain Medication Given Likely or Known EDMOND and Discussed the importance of using CPAP/BiPAP during any sleep period (in the postoperative period)
== END 2022-09-20 17:30 | disposition home or self-care (01) ==
PROVIDERS: PCP Nurse Practitioner Family; Visit Provider Student in an Organized Health Care Education/Training Program
PROC: (CPT 29827; principal; 2022-09-20 13:00)
DX: M19.012 Primary osteoarthritis, left shoulder (principal); M75.102 Unspecified rotator cuff tear or rupture of left shoulder, not specified as traumatic; M75.22 Bicipital tendinitis, left shoulder; M75.52 Bursitis of left shoulder
CPT/HCPCS: 29827; 29828; 29824; 29826; 29823; 76942; J0131; J0690; J1100; J1170; J1885; J2250; J2370; J2405; J2704; J3010

== ENCOUNTER 2022-12-03 01:25 | Outpatient (CLI) | payer MEDICAID, SELFPAY ==
[2022-12-03 09:38] LABS: Hemoglobin A1C 6.6 % (<5.7)
[2022-12-03 09:49] LABS: CREATININE 1.1 mg/dL (0.70-1.30); Estimated GFR 78.79 (mL/min/1.73m2); Potassium 4.3 mmol/L (3.5-5.1)
[2022-12-04 01:22] LABS: PSA, Screening 0.6 ng/mL (<=3.5)
== END 2022-12-03 01:26 | disposition home or self-care (01) ==
PROVIDERS: PCP Nurse Practitioner Family; Visit Provider Nurse Practitioner Family
DX: E11.9 Type 2 diabetes mellitus without complications (principal); I10 Essential (primary) hypertension; N40.0 Benign prostatic hyperplasia without lower urinary tract symptoms
CPT/HCPCS: 36415; 84153; 82565; 83036; 84132

== ENCOUNTER 2024-07-20 02:24 | Outpatient (CLI) | payer MEDICAID, SELFPAY ==
[2024-07-20 09:18] LABS: HCT 43.1 % (40.0-50.0); HGB 14.5 g/dL (13.5-17.5); MCH 29.8 pg (27.0-33.0); MCHC 33.6 % (32.0-36.0); MCV 89 fL (80-95); MPV 10.7 fL (8.0-11.0); Platelet Count 178 10^3/uL (130-400); RBC 4.87 10^6/uL (4.36-5.78); RDW 12.3 % (11.8-14.1); RDW-SD 40.1 fL; WBC 6.74 10^3/uL (4.4-10.8)
[2024-07-20 09:39] LABS: Anion Gap 12.2 mmol/L (3-11); BUN 18 mg/dL (7-18); CO2 22.8 mmol/L (21.0-32.0); CREATININE 1.1 mg/dL (0.70-1.30); Calcium 9.1 mg/dL (8.5-10.1); Chloride 104 mmol/L (98-107); Estimated GFR 77.81 (mL/min/1.73m2); Glucose 123 mg/dL (74-106); Potassium 4.5 mmol/L (3.5-5.1); Sodium 139 mmol/L (136-145)
[2024-07-22 15:57] LABS: Fructosamine 232 mcmol/L (200 - 285)
== END 2024-07-20 02:25 | disposition home or self-care (01) ==
LOC: LBO 02:24
PROVIDERS: PCP Nurse Practitioner Family; Visit Provider Student in an Organized Health Care Education/Training Program
DX: M17.11 Unilateral primary osteoarthritis, right knee (principal); E11.9 Type 2 diabetes mellitus without complications; Z01.818 Encounter for other preprocedural examination
CPT/HCPCS: 36415; 80048; 85027; 82985

== ENCOUNTER 2024-08-03 06:02 | Day surgery (SDC) | payer MEDICAID, SELFPAY ==
[2024-08-03] VITALS (44 sets, daily range): BP systolic 108–137; BP diastolic 49–66; PULSE 68–79; RESP 12–24; TEMP 36.4–37; O2SAT 92–97; BMI 43.2
[2024-08-03] MEDS: Gabapentin 300 MG CAP PO (06:31)
[2024-08-03] MEDS: Celecoxib 200 MG CAP 400 MG PO (06:32)
[2024-08-03] MEDS: Acetaminophen 500 MG TAB 1000 MG PO (06:32)
--- NOTE | 2024-08-03 07:00 | W.ANESPRE ---
General Info Date of Service Date Performed: 08/03/24 Height: 5 ft 7 in Weight: 125.1 kg Body Mass Index (BMI): 43.2 Surgical Procedure: Operation Date: 08/03/24 07:40 Proposed Procedure Side Surgeon p Knee Total Arthroplasty, Cementless Right Sivakumar Crews MD Pre-Op Diagnosis Post-Op Diagnosis Primary osteoarthritis of right knee Meds Allergies and Home Medications Allergies Allergy/AdvReac Type Severity Reaction Status Date / Time hydrochlorothiazide Allergy Severe ITCHING Verified 08/03/24 06:12 losartan Allergy Severe TONGUE Verified 08/03/24 06:12 SWELLING Sulfa (Sulfonamide Allergy Severe lips swell Verified 08/03/24 06:12 Antibiotics) amlodipine AdvReac Mild LEG Verified 08/03/24 06:12 SWELLING metoprolol AdvReac Unknown FATIGUE Verified 08/03/24 06:12 verapamil AdvReac Unknown LIGHT-HEADE Verified 08/03/24 06:12 DNESS Home Medication ?Medication ?Instructions ?Recorded vitamin B complex 1 tab PO DAILY 01/17/21 ibuprofen 200 mg capsule 200 mg PO Q6H PRN 10/03/22 indomethacin 25 mg capsule 25 mg PO TID PRN gout #20 caps 08/06/23 triamcinolone acetonide 0.1 % 1 applic topical TID #453.6 grams 08/16/23 topical cream fluticasone propionate 50 1 spray intranasal DAILY #15.8 mL 10/16/23 mcg/actuation nasal spray,suspension (Flonase Allergy Relief) lisinopril 40 mg tablet 40 mg PO HS #90 tabs 11/13/23 pantoprazole 40 mg tablet,delayed 40 mg PO DAILY #90 tabs 11/13/23 release metformin 500 mg tablet,extended 750 mg (1.5 x 500 mg) PO QDAY #135 02/24/24 release 24 hr tabs fluoxetine 40 mg capsule 40 mg PO DAILY #90 caps 03/18/24 rosuvastatin 10 mg tablet 10 mg PO DAILY #90 tab-caps 05/13/24 lactobacillus combination no.4 3 3,000 mmu cells PO DAILY 08/03/24 billion cell capsule (Probiotic) Current Visit Medications: Current Medications Generic Name Dose Route Start Last Admin Trade Name Freq PRN Reason Stop Dose Admin Acetaminophen 1,000 mg 08/03/24 06:00 12/23/24 06:32 Acetaminophen 500 Mg Tab PO 12/23/24 23:59 1,000 mg PREOP GIOVANNY Administration Celecoxib 400 mg 08/03/24 06:00 08/03/24 06:32 Celecoxib 200 Mg Cap PO 08/03/24 23:59 400 mg PREOP GIOVANNY Administration Gabapentin 300 mg 08/03/24 06:00 08/03/24 06:31 Gabapentin 300 Mg Cap PO 08/03/24 23:59 300 mg PREOP GIOVANNY Administration Ringer's Solution 1,000 mls @ 80 mls/hr 08/03/24 06:00 IV 08/03/24 23:59 INFUSION GIOVANNY Cefazolin Sodium 3,000 mg/ 100 mls @ 200 mls/hr 08/03/24 06:00 Sodium Chloride IV 08/03/24 23:59 PREOP GIOVANNY Tranexamic Acid/Sodium Chloride 1,000 mg in 100 mls @ 600 mls/hr 08/03/24 06:00 IVPB 08/03/24 23:59 PREOP GIOVANNY IV Miscellaneous Supplies 1 each 08/03/24 06:00 Iv Access IV 08/03/24 23:59 DIRECTED GIOVANNY Sodium Chloride 0 ml 08/03/24 06:00 Normal Saline Flush 10 Ml Syr IV 08/03/24 23:59 PRN PRN Sodium Chloride 0 ml 08/03/24 06:00 Normal Saline 10 Ml Vial IJ 08/03/24 23:59 DIRECTED PRN Sterile Water 0 ml 08/03/24 06:00 Water,Injection,Sterile 10 Ml Vial IJ 08/03/24 23:59 DIRECTED PRN PFSH Active Problems Active Problems: Problem Status Onset Code TMJ (temporomandibular joint disorder) Acute Anxiety Acute F41.9 Diabetes mellitus Acute 03/30/15 E11.9 Essential hypertension Acute I10 Increased body mass index Acute R63.8 EDMOND on CPAP Acute 02/15/15 G47.33, Z99.89 Psoriasis Acute 06/30/15 L40.9 Reflux esophagitis Acute K21.0 Tubular adenoma of colon Acute D12.6 Cervical stenosis of spinal canal Chronic M48.02 BPH (benign prostatic hyperplasia) Chronic N40.0 Depressed Chronic F32.9 Primary osteoarthritis of right knee Chronic M17.11 Cervical spondylosis without myelopathy Acute M47.812 Hyperlipidemia Acute E78.5 Left rotator cuff tear Acute M75.102 Arthritis of left acromioclavicular joint Acute M19.012 Tendinitis of long head of biceps brachii of left shoulder Acute M75.22 Medical History Medical History Migraine headache without aura Gout ELEVATED URIC ACID Globus pharyngeus 2005 LARYNGOSCOPY NEG; 2007 CXR & EGD NEG; MRI NEG. Duodenitis (08/31/16) 08/31/16- PEPTIC Chondromalacia, patella Cervical radicular pain (12/29/15) : MRI CERV.SPINE: C4-C5:left neural foraminal narrowing/C6-C7 bilat.neural foraminal narr.: PT unsuccessful : [facility]: cervical medial branch block C3-C7: not effective Cardiac arrhythmia 11/13 ETT: PVC'S; 01/14 MPI NEG Fatty liver Surgical History Surgical History Status post arthroscopy of left shoulder H/O right knee surgery History of back surgery lumbar lateral patellar release (~2007) left Open Carpal Tunnel release (~06/2003) right and left EGD - MAC (08/31/16) 09/28/14 Colonoscopy - MAC (08/31/16) 09/28/16- Tubulovillious Adenoma 07/2022 Tubular adenoma Tobacco Smoking/Tobacco Use Status: Never Passive smoking exposure: Yes Second hand exposure: Yes Alcohol Alcohol Intake: current Alcohol intake frequency: 0-2 drinks per day Alcohol type: beer Substance Use Substance use: Occasionally Substance use type: marijuana Details: alcohol: t-2, two beers. Marijuana: t-2, joint Vital Signs and Lab Results Vital Signs Most Recent Vital Signs in EMR: Most Recent Vital Signs Temp Pulse Resp BP Pulse Ox 36.6 C 70 18 137/64 97 08/03/24 06:20 08/03/24 06:20 08/03/24 06:20 08/03/24 06:20 08/03/24 06:20 Lab Results Blood Type / Crossmatch: No Data to Display Complete Blood Count: White Blood Count 6.74 10^3/uL (4.4-10.8) 07/20/24 09:09 Red Blood Count 4.87 10^6/uL (4.36-5.78) 07/20/24 09:09 Hemoglobin 14.5 g/dL (13.5-17.5) 07/20/24 09:09 Hematocrit 43.1 % (40.0-50.0) 07/20/24 09:09 Platelet Count 178 10^3/uL (130-400) 07/20/24 09:09 Complete Metabolic Panel: Sodium 139 mmol/L (136-145) 07/20/24 09:09 Potassium 4.5 mmol/L (3.5-5.1) 07/20/24 09:09 Chloride 104 mmol/L (98-107) 07/20/24 09:09 Carbon Dioxide 22.8 mmol/L (21.0-32.0) 07/20/24 09:09 BUN 18 mg/dL (7-18) 07/20/24 09:09 Creatinine 1.1 mg/dL (0.70-1.30) 07/20/24 09:09 Est GFR (CKD-EPI 2020) 77.81 (mL/min/1.73m2) 07/20/24 09:09 Calcium 9.1 mg/dL (8.5-10.1) 07/20/24 09:09 Glucose 123 mg/dL (74-106) H 07/20/24 09:09 Liver Function Panel: No Data to Display Coagulation Panel: No Data to Display Cardiac Panel: No Data to Display Arterial Blood Gas: No Data to Display Venous Blood Gas: No Data to Display Pancreas Panel: No Data to Display Thyroid Panel: No Data to Display Infectious Disease: No Data to Display Blood Cultures: No Data to Display Toxicology Panel: No Data to Display Imaging and Studies Imaging and Studies Study information below may be from another EMR and interpreted by another provider. Please see original notes in EMR for more complete details. Stress Test Summary: 11/21/2016: Impressions: Normal study after maximal exercise. Summary: 1. Myocardial perfusion imaging: No myocardial perfusion defects noted. 2. The calculated left ventricular ejection fraction after stress: 58%. LV global systolic function is normal. No left ventricular regional motion abnormality. 3. Stress ECG conclusions: The stress ECG is negative. Smith treadmill score: 9. This score predicts a low risk of cardiac events. 4. Stress: The target heart rate was achieved. There is a normal resting blood pressure with an appropriate response to stress. The patient experienced no chest pain during stress. Exercise capacity is average for age. Anesthesia Assessment and Plan Anesthesia History Personal History: No History of Anesthesia Complications Family History: No Family History of Anesthesia Complications Exercise Tolerance Exercise Tolerance: Metabolic Equivalents>4 Implantable Cardiac Device Does patient have a Pacemaker or an ICD?: No Airway Exam Known Difficult Airway: No Mallampati Class: 3 Mouth Opening: Normal (> 3cm) Thyromental Distance: Greater than 3 cm Neck Range of Motion: Limited ROM Neck Circumference: Thick Teeth Condition: Normal Dentition
--- NOTE | 2024-08-03 07:08 | W.ANESPRE ---
General Info Date of Service Date Performed: 08/03/24 Height: 5 ft 7 in Weight: 125.1 kg Body Mass Index (BMI): 43.2 Surgical Procedure: Operation Date: 08/03/24 07:40 Proposed Procedure Side Surgeon p Knee Total Arthroplasty, Cementless Right Sivakumar Crews MD Pre-Op Diagnosis Post-Op Diagnosis Primary osteoarthritis of right knee Meds Allergies and Home Medications Allergies Allergy/AdvReac Type Severity Reaction Status Date / Time hydrochlorothiazide Allergy Severe ITCHING Verified 08/03/24 06:12 losartan Allergy Severe TONGUE Verified 08/03/24 06:12 SWELLING Sulfa (Sulfonamide Allergy Severe lips swell Verified 08/03/24 06:12 Antibiotics) amlodipine AdvReac Mild LEG Verified 08/03/24 06:12 SWELLING metoprolol AdvReac Unknown FATIGUE Verified 08/03/24 06:12 verapamil AdvReac Unknown LIGHT-HEADE Verified 08/03/24 06:12 DNESS Home Medication ?Medication ?Instructions ?Recorded vitamin B complex 1 tab PO DAILY 01/17/21 triamcinolone acetonide 0.1 % 1 applic topical TID #453.6 grams 08/16/23 topical cream fluticasone propionate 50 1 spray intranasal DAILY #15.8 mL 10/16/23 mcg/actuation nasal spray,suspension (Flonase Allergy Relief) lisinopril 40 mg tablet 40 mg PO HS #90 tabs 11/13/23 pantoprazole 40 mg tablet,delayed 40 mg PO DAILY #90 tabs 11/13/23 release metformin 500 mg tablet,extended 750 mg (1.5 x 500 mg) PO QDAY #135 02/24/24 release 24 hr tabs fluoxetine 40 mg capsule 40 mg PO DAILY #90 caps 03/18/24 rosuvastatin 10 mg tablet 10 mg PO DAILY #90 tab-caps 05/13/24 acetaminophen 500 mg tablet 1,000 mg (2 x 500 mg) PO Q8H PRN 08/03/24 pain #90 tabs aspirin 81 mg tablet,delayed 81 mg PO BID #60 tabs 08/03/24 release dexamethasone 4 mg tablet 4 mg PO DAILY #2 tabs 08/03/24 docusate sodium 100 mg capsule 100 mg PO BID PRN #10 caps 08/03/24 (Colace) gabapentin 300 mg capsule 300 mg PO QHS #14 caps 08/03/24 ibuprofen 600 mg tablet 600 mg PO TID PRN pain #90 tabs 08/03/24 lactobacillus combination no.4 3 3,000 mmu cells PO DAILY 08/03/24 billion cell capsule (Probiotic) oxycodone 5 mg tablet 5 mg PO Q4H PRN #18 tabs 08/03/24 Current Visit Medications: Current Medications Generic Name Dose Route Start Last Admin Trade Name Freq PRN Reason Stop Dose Admin Acetaminophen 1,000 mg 08/03/24 06:00 08/03/24 06:32 Acetaminophen 500 Mg Tab PO 08/03/24 23:59 1,000 mg PREOP GIOVANNY Administration Celecoxib 400 mg 08/03/24 06:00 08/03/24 06:32 Celecoxib 200 Mg Cap PO 08/03/24 23:59 400 mg PREOP GIOVANNY Administration Gabapentin 300 mg 08/03/24 06:00 08/03/24 06:31 Gabapentin 300 Mg Cap PO 08/03/24 23:59 300 mg PREOP GIOVANNY Administration Ringer's Solution 1,000 mls @ 80 mls/hr 08/03/24 06:00 IV 08/03/24 23:59 INFUSION GIOVANNY Cefazolin Sodium 3,000 mg/ 100 mls @ 200 mls/hr 08/03/24 06:00 Sodium Chloride IV 08/03/24 23:59 PREOP GIOVANNY Tranexamic Acid/Sodium Chloride 1,000 mg in 100 mls @ 600 mls/hr 08/03/24 06:00 IVPB 08/03/24 23:59 PREOP GIOVANNY IV Miscellaneous Supplies 1 each 08/03/24 06:00 Iv Access IV 08/03/24 23:59 DIRECTED GIOVANNY Sodium Chloride 0 ml 08/03/24 06:00 Normal Saline Flush 10 Ml Syr IV 08/03/24 23:59 PRN PRN Sodium Chloride 0 ml 08/03/24 06:00 Normal Saline 10 Ml Vial IJ 08/03/24 23:59 DIRECTED PRN Sterile Water 0 ml 08/03/24 06:00 Water,Injection,Sterile 10 Ml Vial IJ 08/03/24 23:59 DIRECTED PRN PFSH Active Problems Active Problems: Problem Status Onset Code TMJ (temporomandibular joint disorder) Acute Anxiety Acute F41.9 Diabetes mellitus Acute 03/30/15 E11.9 Essential hypertension Acute I10 Increased body mass index Acute R63.8 EDMOND on CPAP Acute 02/15/15 G47.33, Z99.89 Psoriasis Acute 06/30/15 L40.9 Reflux esophagitis Acute K21.0 Tubular adenoma of colon Acute D12.6 Cervical stenosis of spinal canal Chronic M48.02 BPH (benign prostatic hyperplasia) Chronic N40.0 Depressed Chronic F32.9 Primary osteoarthritis of right knee Chronic M17.11 Cervical spondylosis without myelopathy Acute M47.812 Hyperlipidemia Acute E78.5 Left rotator cuff tear Acute M75.102 Arthritis of left acromioclavicular joint Acute M19.012 Tendinitis of long head of biceps brachii of left shoulder Acute M75.22 Medical History Medical History Migraine headache without aura Gout ELEVATED URIC ACID Globus pharyngeus 2005 LARYNGOSCOPY NEG; 2007 CXR & EGD NEG; MRI NEG. Duodenitis (08/31/16) 08/31/16- PEPTIC Chondromalacia, patella Cervical radicular pain (12/29/15) -2015: MRI CERV.SPINE: C4-C5:left neural foraminal narrowing/C6-C7 bilat.neural foraminal narr.: PT unsuccessful : [facility]: cervical medial branch block C3-C7: not effective Cardiac arrhythmia 11/13 ETT: PVC'S; 01/14 MPI NEG Fatty liver Surgical History Surgical History Status post arthroscopy of left shoulder H/O right knee surgery History of back surgery lumbar lateral patellar release (~2007) left Open Carpal Tunnel release (~06/2003) right and left EGD - MAC (08/31/16) 09/28/14 Colonoscopy - MAC (08/31/16) 09/28/16- Tubulovillious Adenoma 07/2022 Tubular adenoma Tobacco Smoking/Tobacco Use Status: Never Passive smoking exposure: Yes Second hand exposure: Yes Alcohol Alcohol Intake: current Alcohol intake frequency: 0-2 drinks per day Alcohol type: beer Substance Use Substance use: Occasionally Substance use type: marijuana Details: alcohol: t-2, two beers. Marijuana: t-2, joint Vital Signs and Lab Results Vital Signs Most Recent Vital Signs in EMR: Most Recent Vital Signs Temp Pulse Resp BP Pulse Ox 36.6 C 70 18 137/64 97 08/03/24 06:20 08/03/24 06:20 08/03/24 06:20 08/03/24 06:20 08/03/24 06:20 Point of Care Results Point of Care Results: Finger Stick Blood Glucose 130 08/03/24 06:56 Lab Results Blood Type / Crossmatch: No Data to Display Complete Blood Count: White Blood Count 6.74 10^3/uL (4.4-10.8) 07/20/24 09:09 Red Blood Count 4.87 10^6/uL (4.36-5.78) 07/20/24 09:09 Hemoglobin 14.5 g/dL (13.5-17.5) 07/20/24 09:09 Hematocrit 43.1 % (40.0-50.0) 07/20/24 09:09 Platelet Count 178 10^3/uL (130-400) 07/20/24 09:09 Complete Metabolic Panel: Sodium 139 mmol/L (136-145) 07/20/24 09:09 Potassium 4.5 mmol/L (3.5-5.1) 07/20/24 09:09 Chloride 104 mmol/L (98-107) 07/20/24 09:09 Carbon Dioxide 22.8 mmol/L (21.0-32.0) 07/20/24 09:09 BUN 18 mg/dL (7-18) 07/20/24 09:09 Creatinine 1.1 mg/dL (0.70-1.30) 07/20/24 09:09 Est GFR (CKD-EPI 2020) 77.81 (mL/min/1.73m2) 07/20/24 09:09 Calcium 9.1 mg/dL (8.5-10.1) 07/20/24 09:09 Glucose 123 mg/dL (74-106) H 07/20/24 09:09 Liver Function Panel: No Data to Display Coagulation Panel: No Data to Display Cardiac Panel: No Data to Display Arterial Blood Gas: No Data to Display Venous Blood Gas: No Data to Display Pancreas Panel: No Data to Display Thyroid Panel: No Data to Display Infectious Disease: No Data to Display Blood Cultures: No Data to Display Toxicology Panel: No Data to Display Imaging and Studies Imaging and Studies Study information below may be from another EMR and interpreted by another provider. Please see original notes in EMR for more complete details. Stress Test Summary: 11/21/2016: Impressions: Normal study after maximal exercise. Summary: 1. Myocardial perfusion imaging: No myocardial perfusion defects noted. 2. The calculated left ventricular ejection fraction after stress: 58%. LV global systolic function is normal. No left ventricular regional motion abnormality. 3. Stress ECG conclusions: The stress ECG is negative. Smith treadmill score: 9. This score predicts a low risk of cardiac events. 4. Stress: The target heart rate was achieved. There is a normal resting blood pressure with an appropriate response to stress. The patient experienced no chest pain during stress. Exercise capacity is average for age. Anesthesia Assessment and Plan Anesthesia History Personal History: No History of Anesthesia Complications Family History: No Family History of Anesthesia Complications Exercise Tolerance Exercise Tolerance: Metabolic Equivalents>4 Cardiac & Pulmonary Exam Cardiac Exam: Normal S1/S2 Heart Sounds Pulmonary Exam: Clear Bilateral Breath Sounds Implantable Cardiac Device Does patient have a Pacemaker or an ICD?: No Airway Exam Known Difficult Airway: No Mallampati Class: 3 Mouth Opening: Normal (> 3cm) Thyromental Distance: Greater than 3 cm Neck Range of Motion: Limited ROM Neck Circumference: Thick Teeth Condition: Normal Dentition ASA Classification ASA Score: ASA 3 Emergency Case?: No NPO Status NPO Status: NPO Clears >2 hours, Solids >8 hours Anesthesia Plan Resuscitation Status: Full Code Anesthesia Technique: Spinal Anesthesia Airway Planned: Natural Airway Pain Management: Surgeon and patient request nerve block Monitors Used: Standard Monitors Preoperative Comments:: Patient reports continued cervical radiculopathy with bilateral intermittent arm involvement. Patient reports has not seeked follow up since last anesthetic for shoulder.
--- NOTE | 2024-08-03 07:21 | W.PM.DSUDISC ---
Date of service: 08/03/24 Discharge Plan Disposition Patient Disposition: Home Condition: Improving Discharge Details Reason For Visit: Right Knee Arthritis Attending Provider: Sivakumar Crews Primary Care Provider: Moncho Hodges Home Meds and New Rx's Prescriptions: New aspirin 81 mg tablet,delayed release (DR/EC) 81 mg PO BID Qty: 60 0RF acetaminophen 500 mg tablet 1,000 mg PO Q8H PRN (Reason: pain) Qty: 90 3RF dexamethasone 4 mg tablet 4 mg PO DAILY Qty: 2 0RF Rx Instructions: Starting Post-Operative Day #1 (Day after surgery) docusate sodium [Colace] 100 mg capsule 100 mg PO BID PRNQty: 10 0RF oxycodone 5 mg tablet 5 mg PO Q4H PRNQty: 18 0RF ibuprofen 600 mg tablet 600 mg PO TID PRN (Reason: pain) Qty: 90 3RF gabapentin 300 mg capsule 300 mg PO QHS Qty: 14 0RF Continued metformin 500 mg tablet extended release 24 hr 750 mg PO QDAY Qty: 135 3RF Patient Comments: pt. reports dose is 500mg triamcinolone acetonide 0.1 % cream 1 applic topical TID Qty: 453.6 0RF fluticasone propionate [Flonase Allergy Relief] 50 mcg/actuation spray,suspension 1 spray intranasal DAILY Qty: 15.8 4RF Rx Instructions: administer into each nostril lisinopril 40 mg tablet 40 mg PO HS Qty: 90 3RF pantoprazole 40 mg tablet,delayed release (DR/EC) 40 mg PO DAILY Qty: 90 3RF fluoxetine 40 mg capsule 40 mg PO DAILY Qty: 90 4RF rosuvastatin 10 mg tablet 10 mg PO DAILY Qty: 90 3RF Rx Instructions: replaces Pravastatin/take one tablet daily vitamin B complex Tablet 1 tab PO DAILY Probiotic 3 billion cell capsule 3,000 mmu cells PO DAILY Patient Comments: pt. reports it is 50 mmu Rx Instructions: administer with a meal Discontinued ibuprofen 200 mg capsule 200 mg PO Q6H PRN indomethacin 25 mg capsule 25 mg PO TID PRN (Reason: gout) Qty: 20 0RF Rx Instructions: administer with food or milk Discharge Instructions Additional Instructions: Total Knee Discharge Instructions Activity: The most important activity is to walk and to work on gentle motion (both flexion and extension). You should try to take short walks a few times a day. It is important that when resting you work on keeping the knee straight. Avoid putting a pillow behind the knee as this will encourage flexion. Work on range of motion exercises as provided by Physical Therapy. - Start outpatient physical therapy within 2 weeks. - You should wear the FLACO hose on both legs for 2 weeks. You may remove these at night. You may also use any compression sock in place of the FLACO hose. - Utilize [employer] to review exercises, see videos on exercises and obtain basic information pertaining to your surgery and your recovery. Dressing: Remove the Uri wrap by 2 days after your surgery and put on the FLACO stocking given to you from the hospital. Keep the surgical dressing (underneath the URI wrap) in place for at least one week. After the first week it may be removed and replaced with light gauze and tape or nothing. The wound and dressing may get wet after 3 days but avoid soaking the dressing or otherwise it will need to be changed. Many people prefer covering the dressing with cling wrap (saran wrap) to minimize it from getting soaked. If it gets wet, just pat dry. If it starts to peel off then it will need to be changed. Medications: - You should take Tylenol and anti-inflammatory Ibuprofen as your primary pain control medications. - You have been prescribed a stronger pain medication Oxycodone for breakthrough pain, take as needed as prescribed. - You will continue your stomach acid reduction agent Pantoprozole to help reduce stomach acid and reflux. - You have been prescribed Gabapentin to take at night for restlessness and nerve pain. - You will be taking Aspirin 81mg twice a day for DVT prevention unless instructed otherwise. - You have also been prescribed Decadron to take to control post-operative nausea and pain. You will start this tomorrow. - If you have constipation you should take Colace or Miralax (both [id number]). It takes most people 3-4 days to have a bowel movement. Follow-up: 2 weeks If you have any acute concerns or questions, please do not hesitate to contact the office at [phone]. You may contact Dr. Crews with any questions after hours through the hospital at [phone] or on his cell phone at [phone]. Stand Alone Forms: Anesthesia Discharge Inst., Afshin.Nerve Block Instructions, [facility] Byrd ([facility]) Referrals: Sivakumar Crews MD [ [facility] STAFF PHYSICIAN] - 08/17/24 11:00 am Equipment/Supplies: Walker Activity:: Elevate Remove Dressings/Wound Care:: 72 hours Shower/Bathe:: Cover Diet:: Carb Counting Discharge Orders Discharge Orders: Discharge Order (Routine); Ordered 08/03/24 Ordered By: Sivakumar Crews DS: Diagnosis Discharge Diagnosis (1) Primary osteoarthritis of right knee: Status: Chronic
[2024-08-03] MEDS: Lactated Ringers 1,000 ML 80 ML IV (07:30)
--- NOTE | 2024-08-03 07:49 | W.PM.OP ---
Operative Note Operative Note PRE-OP DIAGNOSIS: Right Knee Osteoarthritis POST-OP DIAGNOSIS: same PROCEDURE: Right Total Knee Replacement SURGEON: Sivakumar Crews BUSINESS ENTERPRISE OFFICER: Saskia Pineda ANESTHESIA TYPE: Spinal Refer to Anesthesia Record ESTIMATED BLOOD LOSS: 150 PATHOLOGY: none sent TOURNIQUET TIME: 0 COMPLICATIONS: None Patient was transported to: PACU Patient's condition: stable Implants: 1. Depuy Attune Cementless Cruciate Retaining Femoral Component, Size 7 2. Depuy Attune Cementless Fixed Bearing Tibial Component, Size 6 3. Depuy Attune 7x6mm CR/FB Poly 4. Depuy Attune Patellar Component, Size 38 Indications: I have seen Korey in clinic for symptoms of knee arthritis, confirmed with radiographic findings. He has exhausted nonoperative methods and was having significant limitations in daily function and desired better function and less pain. I discussed the technical details of a knee replacement. I explained the risks of the procedure to include, but not limited to, bleeding, infection, pain, stiffness, fracture, damage to nerves and vessels, damage to muscles and tendons, loosening, need for repeat procedure, blood clot and cardiopulmonary demise. Despite these risks, Korey elected to proceed. Findings: There was significant signs of arthritis throughout the knee. Procedure Description: Korey was greeted in the preoperative holding area where the correct side was identified and marked. The consent was reviewed with the patient and signed. The history and physical was updated. All questions were answered. Preoperative medications were administered: Acetaminophen 1000mg, Celebrex 400mg, and Gabapentin 300mg. An adductor canal block was then administered by the anesthesia team in the DSU. He was taken back to the operating room. A spinal anesthestic was then administered. The patient was placed into the supine position on the operating room table. Posts were placed for positioning during the procedure. All bony prominences were well padded. Prophylactic antibiotics in the form of Cefazolin were administered. 1g of Tranxemic Acid was given intravenously within 30 minutes of incision. The right leg was then prepped with Chloraprep and draped in a standard fashion with impervious stockinette. A second prep with Chloraprep was performed prior to application of Iodine impregnated skin protection. A timeout to confirm correct identity, side and site, procedure, allergies, anesthesia, and medical concerns was performed. With the knee in some flexion, a midline incision was made overlying the knee. Full thickness skin flaps were raised once the extensor mechanism was encountered. These were raised medially and laterally. Any bleeding was controlled with electrocautery. Once the extensor mechanism was fully exposed, a medial parapatellar arthrotomy was performed in a flexed position. All bleeding from the arthrotomy and the geniculate arteries was coagulated. A medial subperiosteal peel was performed with electrocautery to the midcoronal plane. Due to the significant varus deformity the entire medial tibial plateau was exposed. The fat pad was removed while keeping the patellar tendon protected. The anterior distal femur synovium was removed for later visualization. The ACL and PCL were resected and the anterior horn of the lateral meniscus was transected. The knee was then flexed with the patella everted. Large osteophytes from the tibia were removed. Large osteophytes from the femur were removed. Using a step drill, and based on preoperative templating, the femoral canal was entered. This was done with a step drill without any difficulty. The intramedullary distal femoral cut guide was inserted, set to a 5 degree valgus cut and 9mm cut thickness. The distal femoral cut guide was then held in position and pinned. With the soft tissues protected, the distal cut was performed. This was passed over a few times to ensure a planar cut. I then turned attention to the tibia. The extramedullary guide was placed onto the leg. The distal aspect was slid medial to adjust for position of center of ankle and stay in line with shaft of the tibia. Approximately 3-5 degrees of posterior slope was kept in the proximal cutting guide. The center of the guide was aligned with the PCL. The stylus was used to assess cut thickness. The medial side, most involved side, was set for a 4mm cut. This was then held in position and pinned into place with 2 additional pins and a cross pin for stability. The medial and lateral collateral ligaments were protected and the cut was performed. With this completed, it was assessed and noted to be of appropriate dimensions. The guide was removed. A spacer block was inserted and the knee was brought into extension. The 6mm spacer block provided full extension, without hyperextension and with stability of both the medial and lateral collateral ligaments was assessed. The pins from the femur and the tibia were then removed. The distal femur was then sized. The anterior stylus was placed onto the lateral ridge of the anterior femur. This indicated a size 7 femur. The external rotation of the guide was adjusted to 5 degrees to match the epicondylar axis, perpendicular to [place]?s line. The 4-in-1 cutting guide was the placed. The posterior medial femur cut was evaluated and appeared of good thickness. The spacer block was inserted underneath the cutting guide and stability was confirmed in 90 degrees of flexion. An herbie wing was used to confirm appropriate position of the anterior cut to avoid notching. This cutting guide was ensured to be flush on the cut surface and then pinned into place with headed pins. While protecting the soft tissues, quad tendon, and collateral ligaments, the anterior and posterior cuts were performed with a saw. The central two pins were removed and the posterior and anterior chamfers were cut next. The notch-cutting guide was placed. This was pinned to lateralize the femoral component as much as possible while keeping it flush on the cut surface. This was then pinned into position. A reciprocating saw was used to make the notch cut. A rasp smoothed the cut surfaces. The medial and lateral menisci were removed. A trial femoral component was then inserted, impacted down to the cut surfaces, and the lug holes were drilled. A provisional trial tibial component was placed and the knee was brought through range of motion. There was noted to be excellent extension and flexion. There was no significant instability. The patella was tracking without thumbs. A size 6mm polyethylene component provided the best range of motion and stability with less than 2mm gapping with medial and lateral stress and full extension without significant hyperextension. The tibial cut surface was fully exposed. The tibia was then sized as a 6. The tibia had been previously marked during trialing to correspond to the center of the tibial component to help with rotation. The trial was aligned to this ginny, approximately rotated to the medial 1/3rd of the tibial tubercle. The trial was pinned into place. The tibia was prepared with a reamer and a keel punch and lug holes. The knee was then brought into extension and the patella was measured as 27mm. Using the patellar clamp and cut guide, this was resected to a flat surface with at least 13mm of thickness remaining. The size 38 patella fit the best. This was oriented and then clamped into position. The lugs were drilled. The trial components were removed. The final components were opened on the back table. The periosteal and capsular tissues, especially posteriorly, around the knee were then systematically injected with a periarticular cocktail consisting of 246mg of Ropivacaine, 0.5mg of Epinephrine, 0.08mg of Clonidine, and 30mg of Ketorolac, diluted to 100cc. On the back table, with the implants opened, the cement was mixed. One batch of high viscosity cement was prepared with vacuum assistance. After the cement was ready a small amount was placed on the cut surface of the patella and the patellar button was clamped into position and held. While the cement was hardening, the cementless knee components were placed. Starting with the tibial component, the tibia was subluxed anteriorly and the lug holes of the component were lined up. The tibia was then impacted with an impactor and mallet until the tibial component was in contact with the tibia. The final polyethylene component was inserted. Then, the femoral component was inserted. The lug holes were aligned and the component was impacted into position. The knee was irrigated with Surgiphor Betadine solution. This was allowed to sit in the knee for 3 minutes and then it was irrigated out with saline. After the cement had finally cured, approximately 15min, the clamp was removed from the patella and the knee was taken through range of motion. The patella was tracking with a no-thumbs technique. The capsule was then reapproximated with a No. 1 Vicryl at multiple locations. The capsule was finally closed with a No. 2 Stratafix, barbed suture. The second dosing of 1g TXA was started. Deep tissues were then reapproximated with 0 Vicryl and 2-0 Vicryl. The skin was closed with a running 3-0 Monocryl in a subcuticular fashion. This was reinforced with skin glue. A Mepilex silver dressing was applied along with a [id number] FINA wrap. A CryoCuff was applied. Korey was transferred to the hospital bed without difficulty an suffering no apparent complication. He has a good prognosis. Physical therapy will start today and without restrictions, weight-bearing as tolerated. Aspirin 81mg BID will be used for DVT prophylaxis. Date of Procedure: 08/03/24
[2024-08-03] MEDS: ceFAZolin 3,000 MG in Normal Saline 100 ML 200 MG IV (07:57)
[2024-08-03] MEDS: TRANEXAMIC ACID/SOD. CHL. 1,000 MG/100 ML BAG 600 MG IVPB (08:08)
--- NOTE | 2024-08-03 08:24 | W.ANESNERVE ---
Nerve Block Single Injection Procedure Date and Time Date Performed: 08/03/24 Procedure Start: 07:30 Location Where Procedure Performed Procedure Location: Day Surgery Unit Reason Performed: Postoperative Analgesia Requesting Provider: Sivakumar Crews Timeout Performed Timeout Performed: Yes Monitoring Used ECG, Blood Pressure, SpO2 and See EMR for corresponding vital signs Sterility Sterility: Hand Hygiene, Surgical Cap, Surgical Mask, Sterile Gloves and Chlorhexidine Sedation Given During Procedure Sedation Given (Indicate Dose Given): Versed IV Dose:: 2mg Patient Mental Status Patient Mental Status: Sedate with meaningful communication Nerve Block 1st Nerve Block: Laterality: Right Block Type: Adductor Canal Ultrasound Image Saved?: Yes Needle / Catheter Used: 100mm SonoPlex II Local Anesthetic Bolus (Indicate Dose Given): Lidocaine used for local infiltration of skin, Injected in 3-5ml increments after negative blood aspiration, Bupivacaine 0.25% Dose:: 10mL and Exparel Dose:: 10mL Additives (Indicate Dose Given): None Ultrasound: Sterile probe cover and gel used Nerve Stimulator: Not Used Paresthesia: None Procedure Tolerated: No Complications Procedure Outcome: Successful Procedure Comment: Salvatore Mcdaniel CRNA assist Performed By: Debi Lopez
[2024-08-03] MEDS: HYDROmorphone 1 MG/ML SYR IVP ×4 (09:58→10:49)
[2024-08-03] MEDS: fentaNYL 100 MCG/2 ML VIAL IVP ×2 (10:17→10:23)
--- NOTE | 2024-08-03 14:03 | W.ANESPOSTOP ---
Postoperative Evaluation Date, Time and Location Date Performed: 08/03/24 Time Performed: 14:03 Patient Location: Day Surgery Unit Vital Signs Most Recent Imported Vital Signs: Most Recent Vital Signs Temp Pulse Resp BP Pulse Ox 36.6 C 72 19 124/63 93 08/03/24 11:58 08/03/24 11:58 08/03/24 11:58 08/03/24 11:58 08/03/24 12:42 Pain Score Most Recent Pain Score: Most Recent Pain Score Pain Level 8 08/03/24 11:58 Assessment Mental Status: Awake (Alert & Oriented to Patient Baseline) Airway and Respiratory Function: Patent airway with normal (patient baseline) respiratory exam Cardiovascular Function: Hemodynamically Stable Hydration Status: Adequately Hydrated Nausea & Vomiting: No Nausea or Vomiting Pain: Other Peripheral Nerve Block: Regional nerve block not resolved at time of post operative discharge Teaching Patient Teaching: Discussed Safe Use of Pain Medication Given Recent Anesthesia, Discussed Safe Use of Pain Medication Given Likely or Known EDMOND and Discussed the importance of using CPAP/BiPAP during any sleep period Postoperative Comments:: Pt has 8/10 pain, however is smiling and peacefully conversive. He is awake and appropriate. Face scale would be a 2. I think most of his discomfort is from muscle stretch discomfort from operative knee to top of foot. He denies any numbness or tingling and has voided.
--- NOTE | 2024-08-03 14:26 | PT.INIE ---
PT Notes Visit Reasons: Right Knee Arthritis Physical Therapy Day Surgery Initial Evaluation Date: 08/03/2024 Referring Doctor: Dr Crews PT Orders: PT CONSULT: s/p Ortho surgery Precautions: activity as tolerated, TEDs x 2 weeks Patient Profile/Admitting Diagnosis:Pt is 59 yo male presenting s/p elective right TKA by Dr Crews on 08/03/24. Post op pt required supplemental oxygen initially. PMHX: TMJ, Anxiety, DM. HTN,EDMOND on CPAP, esophageal reflux, Tubular adenoma of colon, Cervical stenosis of spinal canal,BPH, Depressed, OA, cervical spondylosis without myelopathy, HLD,Left rotator cuff tear, Left AC joint arthritis, L long head of bicep tendinitis Social History/Home Situation:Pt resides in single level home with 3 steps without rail to enter. He is Independent, ADL, ambulation, driving, meal prep , medication management. 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 Pt has 3 dogs Equipment Owned/DME:crutches, cryocuff,CPAP Subjective: Pt reports he is having pain but is willing to move. He states the doctor told him he had to do a lot of manipulating of his muscles and to expect the thigh to be sore. Objective: General Observation: male semireclined with RLE inhip ER knee flexion on stretcher with cryocuff to right knee. present. Mental Status:Alert and oriented x 4, motivated to move and get home Pain: pt reports 6/10 right thigh, agreeable to participate despite this level. No facial grimacing noted no reports of increase during session ROM: Right Upper Extremity: WFL Left Upper Extremity: WFL Right Lower Extremity: WNL except knee 0-68degrees Left Lower Extremity:WNL Strength: [] Right Upper Extremity:5/5 Left Upper Extremity: 5/5 Right Lower Extremity: hip flexion 3-/5 able to perform quad set, SLR in shortened ROM without lag, impaired hamstring strength 2+/5. ankle 4/5 Left Lower Extremity: 5/5 Sensation: intact light touch deep pressure Bed Mobility/Transfers: Supine to sit supervision sit to supine supervision with increased time to get RLE into bed Sit to stand supervision Stand to sit supervision Bed to chair supervison with FWW Gait: ambulation with FWW supervision 150 feet level surfaces with turns . Pt demonstrates the following deviation: impaired knee flexion Right during swing phase. early heel off on right, decreased step length, increased lateral weight shift to left, increased WB through BUE. Stairs 3 steps with crutch Supervision with cues for sequencing of crutch. 3 steps without device CGA. present Balance: Static Sitting: Normal Dynamic Sitting:Good Static Standing: Good Dynamic Standing: Fair + Special Tests: Mobility Limitations Standardized Measure [facility] AM-PAC 6 clicks Basic Mobility Inpatient Short Form: Raw Score: 21 CMS Score: 28.97% Informed Consent/Education: Patient instructed in purpose of PT consult. Packet containing TKA exercise protocol has been given to patient. present and educated on stair technique with crutch to provide supervision. Pt education for positioning of RLE in neutral hip rotation with knee extension when at rest to reduce risk of contracture Treatment 81222: Education and training on initial set of exercises that can be done at home have been completed with patient. Assessment: Patient is a 59 yo male presenting with clinical signs and symptoms consistent with current/admitting diagnoses that have resulted to mobility limitations, gait instability, generalized weakness, and impairment of motor control as demonstrated by the following impairment level findings: 1. Decreased strength to right knee major muscle groups 2. Impaired standing balance 3. Limitation of joint range of motion in right knee 4. decreased standing functional activity tolerance Impairments are contributing to the following functional limitations: 1. Inability to safely ambulate without assistive device 2. Increase completion time for mobility ADL performance 3. Increased fall risk 4. Inability to perform stairs without assistance Patient is assessed as a moderate complexity based on the following: History: 59-year-old male with impairment level findings, functional limitations, and past medical history as indicated above Examination: Demonstrable impairment in strength, balance, and mobility level with underlying impairments and functional limitations as documented above Presentation:evolving Decision Making: moderate Goals: N/A. Plan of Care/Treatment Plan: N/A DISCHARGE RECOMMENDATIONS: home with outpatient PT as scheduled TREATMENT CODE/TIME: 60157, [id number]/ [id number] Thank you for the opportunity to participate in the care of this patient. [facility]
== END 2024-08-03 14:16 | disposition home or self-care (01) ==
PROVIDERS: PCP Nurse Practitioner Family; Visit Provider Student in an Organized Health Care Education/Training Program
PROC: (CPT 27447; principal; 2024-08-03 07:30)
DX: M17.11 Unilateral primary osteoarthritis, right knee (principal); G89.18 Other acute postprocedural pain; M25.561 Pain in right knee; I10 Essential (primary) hypertension; E11.9 Type 2 diabetes mellitus without complications; E78.5 Hyperlipidemia, unspecified; G47.33 Obstructive sleep apnea (adult) (pediatric); L40.0 Psoriasis vulgaris
CPT/HCPCS: 27447; 64447; 97110; 97162; C1776; C9290; J0665; J0690; J1100; J1171; J2250; J2401; J2405; J2704; J3010

== ENCOUNTER 2024-08-17 15:48 | Outpatient (CLI) | payer MEDICAID, SELFPAY ==
--- NOTE | 2024-08-17 11:00 | DI.RAD_ITS ---
Exam(s) XR STANDING ALIGNMENT XR KNEE RT 1V EXAM: XR STANDING ALIGNMENT and XR knee RT 1 V CLINICAL HISTORY: 1ST POST OP R TKA. TECHNIQUE: 2D digital imaging was performed. Five images were obtained. COMPARISON: CR LEFT KNEE LIMITED 1 OR 2 VIEWS from 09/18/2012 CR RIGHT KNEE LIMITED 1 OR 2 VIEW from 03/06/2017 CR XR KNEE RT 4V AP,LAT,ROSIE,PAT from 10/24/2020 FINDINGS: BONES: The hips are well maintained. There is a right total knee arthroplasty. The orthopedic hardw are appears in good position. No suspicious lucencies are present. In the left knee, there is mild narrowing of the medial femoral tibial joint. There are small osteophytes seen in the lateral femora l tibial joint. The ankles are well maintained.There is no significant leg length discrepancy. SOFT TISSUE: Normal. IMPRESSION: 1. Unremarkable right total knee arthroplasty. 2. Mild degenerative changes of the left knee. DATA REPOSITORY: RADIATION DOSE DELIVERED:
== END 2024-08-17 15:49 | disposition home or self-care (01) ==
LOC: DIORS 15:49
PROVIDERS: PCP Nurse Practitioner Family; Visit Provider Student in an Organized Health Care Education/Training Program
DX: Z96.651 Presence of right artificial knee joint (principal); Z47.1 Aftercare following joint replacement surgery
CPT/HCPCS: 73560; 77073

== ENCOUNTER 2024-11-02 06:14 | Day surgery (SDC) | payer MEDICAID, SELFPAY ==
[2024-11-02] VITALS (24 sets, daily range): BP systolic 62–141; BP diastolic 27–76; PULSE 67–82; RESP 9–32; TEMP 36–36.7; O2SAT 93–98; BMI 42.8
[2024-11-02] MEDS: Lactated Ringers 1,000 ML 80 ML IV (07:00)
--- NOTE | 2024-11-02 07:07 | ANES.PREOP_ITS ---
General Info Date of Service Date Performed: 11/02/24 Height: 5 ft 7 in Weight: 124.2 kg Body Mass Index (BMI): 42.8 Surgical Procedure: Operation Date: 11/02/24 07:40 Proposed Procedure Side Surgeon p Knee Manipulation of Knee Right Sivakumar Crews MD Actual Procedure Side Surgeon p Knee Manipulation of Knee Right Sivakumar Crews MD Pre-Op Diagnosis Post-Op Diagnosis Status post total right knee replacement Arthrofibrosis of total knee arthroplasty Status post total right knee replacement Arthrofibrosis of total knee arthroplasty Meds Allergies and Home Medications Allergies Allergy/AdvReac Type Severity Reaction Status Date / Time hydrochlorothiazide Allergy Severe ITCHING Verified 11/02/24 06:25 losartan Allergy Severe TONGUE Verified 11/02/24 06:25 SWELLING Sulfa (Sulfonamide Allergy Severe lips swell Verified 11/02/24 06:25 Antibiotics) amlodipine AdvReac Mild LEG Verified 11/02/24 06:25 SWELLING metoprolol AdvReac Unknown FATIGUE Verified 11/02/24 06:25 verapamil AdvReac Unknown LIGHT-HEADE Verified 11/02/24 06:25 DNESS Home Medication ?Medication ?Instructions ?Recorded vitamin B complex 1 tab PO DAILY 01/17/21 triamcinolone acetonide 0.1 % 1 applic topical TID #453.6 grams 08/16/23 topical cream fluticasone propionate 50 1 spray intranasal DAILY #15.8 mL 10/16/23 mcg/actuation nasal spray,suspension (Flonase Allergy Relief) lisinopril 40 mg tablet 40 mg PO HS #90 tabs 11/13/23 pantoprazole 40 mg tablet,delayed 40 mg PO DAILY #90 tabs 11/13/23 release metformin 500 mg tablet,extended 750 mg (1.5 x 500 mg) PO QDAY #135 02/24/24 release 24 hr tabs fluoxetine 40 mg capsule 40 mg PO DAILY #90 caps 03/18/24 rosuvastatin 10 mg tablet 10 mg PO DAILY #90 tab-caps 05/13/24 ibuprofen 600 mg tablet 600 mg PO TID PRN pain #90 tabs 08/03/24 lactobacillus combination no.4 3 3,000 mmu cells PO DAILY 08/03/24 billion cell capsule (Probiotic) Current Visit Medications: Current Medications Generic Name Dose Route Start Last Admin Trade Name Freq PRN Reason Stop Dose Admin Ringer's Solution 1,000 mls @ 80 mls/hr 11/02/24 06:00 11/02/24 07:00 IV 11/02/24 23:59 80 mls/hr INFUSION GIOVANNY Administration IV Miscellaneous Supplies 1 each 11/02/24 06:00 Iv Access IV 11/02/24 23:59 DIRECTED GIOVANNY Sodium Chloride 0 ml 11/02/24 06:00 Normal Saline Flush 10 Ml Syr IV 11/02/24 23:59 PRN PRN Sodium Chloride 0 ml 11/02/24 06:00 Normal Saline 10 Ml Vial IJ 11/02/24 23:59 DIRECTED PRN Sterile Water 0 ml 11/02/24 06:00 Water,Injection,Sterile 10 Ml Vial IJ 11/02/24 23:59 DIRECTED PRN PFSH Active Problems Active Problems: Problem Status Onset Code Arthrofibrosis of total knee arthroplasty Acute T84.82XA Status post total right knee replacement Acute 08/03/24 Z96.651 Tendinitis of long head of biceps brachii of left shoulder Acute M75.22 Arthritis of left acromioclavicular joint Acute M19.012 Left rotator cuff tear Acute M75.102 Hyperlipidemia Acute E78.5 Cervical spondylosis without myelopathy Acute M47.812 Depressed Chronic F32.9 BPH (benign prostatic hyperplasia) Chronic N40.0 Cervical stenosis of spinal canal Chronic M48.02 Tubular adenoma of colon Acute D12.6 Reflux esophagitis Acute K21.0 Psoriasis Acute 06/30/15 L40.9 EDMOND on CPAP Acute 02/15/15 G47.33, Z99.89 Increased body mass index Acute R63.8 Essential hypertension Acute I10 Diabetes mellitus Acute 03/30/15 E11.9 Anxiety Acute F41.9 TMJ (temporomandibular joint disorder) Acute Medical History Medical History EDMOND (obstructive sleep apnea) Migraine headache without aura Gout ELEVATED URIC ACID Globus pharyngeus 2006 LARYNGOSCOPY NEG; 2007 CXR & EGD NEG; MRI NEG. Duodenitis (08/31/16) 08/31/16- PEPTIC Chondromalacia, patella Cervical radicular pain (12/29/15) -2015: MRI CERV.SPINE: C4-C5:left neural foraminal narrowing/C6-C7 bilat.neural foraminal narr.: PT unsuccessful : [facility]: cervical medial branch block C3-C7: not effective Cardiac arrhythmia 11/13 ETT: PVC'S; 01/14 MPI NEG Fatty liver Surgical History Surgical History Status post arthroscopy of left shoulder H/O right knee surgery History of back surgery lumbar lateral patellar release (~2007) left Open Carpal Tunnel release (~06/2003) right and left EGD - MAC (08/31/16) 09/28/14 Colonoscopy - MAC (08/31/16) 09/28/16- Tubulovillious Adenoma 07/2022 Tubular adenoma Tobacco Smoking/Tobacco Use Status: Never Passive smoking exposure: Yes Second hand exposure: Yes Alcohol Alcohol Intake: current Alcohol intake frequency: 0-2 drinks per day Alcohol type: beer Substance Use Substance use: Occasionally Substance use type: marijuana Details: alcohol: t-2, 4 beers. Marijuana: t-1, joint Vital Signs and Lab Results Vital Signs Most Recent Vital Signs in EMR: Most Recent Vital Signs Temp Pulse Resp BP Pulse Ox 36.7 C 70 18 141/76 H 97 11/02/24 06:32 11/02/24 06:32 11/02/24 06:32 11/02/24 06:32 11/02/24 06:32 Point of Care Results Point of Care Results: Finger Stick Blood Glucose 134 11/02/24 06:49 Lab Results Blood Type / Crossmatch: No Data to Display Complete Blood Count: No Data to Display Complete Metabolic Panel: No Data to Display Liver Function Panel: No Data to Display Coagulation Panel: No Data to Display Cardiac Panel: No Data to Display Arterial Blood Gas: No Data to Display Venous Blood Gas: No Data to Display Pancreas Panel: No Data to Display Thyroid Panel: No Data to Display Infectious Disease: No Data to Display Blood Cultures: No Data to Display Toxicology Panel: 2 No Data to Display Imaging and Studies Imaging and Studies Study information below may be from another EMR and interpreted by another provider. Please see original notes in EMR for more complete details. Stress Test Summary: 11/21/2016: Impressions: Normal study after maximal exercise. Summary: 1. Myocardial perfusion imaging: No myocardial perfusion defects noted. 2. The calculated left ventricular ejection fraction after stress: 58%. LV global systolic function is normal. No left ventricular regional motion abnormality. 3. Stress ECG conclusions: The stress ECG is negative. Smith treadmill score: 9. This score predicts a low risk of cardiac events. 4. Stress: The target heart rate was achieved. There is a normal resting blood pressure with an appropriate response to stress. The patient experienced no chest pain during stress. Exercise capacity is average for age. Anesthesia Assessment and Plan Anesthesia History Personal History: No History of Anesthesia Complications Family History: No Family History of Anesthesia Complications Exercise Tolerance Exercise Tolerance: Metabolic Equivalents>4 Pertinent Negatives Pertinent Negatives: No Symptoms of GERD (well controlled with meds, took today), No Major Cardiovascular Symptoms or Complaints and No Major Pulmonary Symptoms or Complaints Cardiac & Pulmonary Exam Cardiac Exam: Normal S1/S2 Heart Sounds Pulmonary Exam: Clear Bilateral Breath Sounds Cardiac and Pulmonary Comment:: EDMOND, CPAP Implantable Cardiac Device Does patient have a Pacemaker or an ICD?: No Airway Exam Known Difficult Airway: No Mallampati Class: 3 Mouth Opening: Normal (> 3cm) Thyromental Distance: Greater than 3 cm Neck Range of Motion: Limited ROM Neck Circumference: Thick Teeth Condition: Normal Dentition (some chipped, upper right, none loose per pt) ASA Classification ASA Score: ASA 3 Emergency Case?: No NPO Status NPO Status: NPO Clears >2 hours, Solids >8 hours Anesthesia Plan Resuscitation Status: Full Code Anesthesia Technique: General Anesthesia Airway Planned: LMA Monitors Used: Standard Monitors
--- NOTE | 2024-11-02 07:29 | PDOC.DSDIS_ITS ---
Date of service: 11/02/24 Discharge Plan Disposition Patient Disposition: Home Condition: Good Discharge Details Reason For Visit: Right Knee Manipulation Attending Provider: Sivakumar Crews Primary Care Provider: Moncho Hodges Home Meds and New Rx's Prescriptions: New dexamethasone 4 mg tablet 4 mg PO DAILY Qty: 2 0RF Rx Instructions: Starting Post-Operative Day #1 (Day after surgery) oxycodone 5 mg tablet 5 mg PO Q8H PRN (Reason: pain) Qty: 10 0RF Continued metformin 500 mg tablet extended release 24 hr 750 mg PO QDAY Qty: 135 3RF Patient Comments: pt. reports dose is 500mg triamcinolone acetonide 0.1 % cream 1 applic topical TID Qty: 453.6 0RF fluticasone propionate [Flonase Allergy Relief] 50 mcg/actuation spray,suspension 1 spray intranasal DAILY Qty: 15.8 4RF Rx Instructions: administer into each nostril lisinopril 40 mg tablet 40 mg PO HS Qty: 90 3RF pantoprazole 40 mg tablet,delayed release (DR/EC) 40 mg PO DAILY Qty: 90 3RF fluoxetine 40 mg capsule 40 mg PO DAILY Qty: 90 4RF rosuvastatin 10 mg tablet 10 mg PO DAILY Qty: 90 3RF Rx Instructions: replaces Pravastatin/take one tablet daily vitamin B complex Tablet 1 tab PO DAILY Probiotic 3 billion cell capsule 3,000 mmu cells PO DAILY Patient Comments: pt. reports it is 50 mmu Rx Instructions: administer with a meal ibuprofen 600 mg tablet 600 mg PO TID PRN (Reason: pain) Qty: 90 3RF Discharge Instructions Additional Instructions: Knee Manipulation Discharge Instructions Activity: You should begin moving as soon as possible. You may work on flexion but also equally maintain extension. You may bear weight as tolerated, using crutches/walker only for support/comfort if needed. You should apply ice to help with swelling and elevate when possible (especially in the first few days). Dressings: The bandaid may be removed later today. Medications: - Rarely does this require any stronger pain medications but it is important that pain doesn't keep you from moving the knee. Oxycodone was called in for more acute pain, particularly at the end of the day and with exercise. - Recommend to take up to 1000mg of Acetaminophen (Tylenol) and 600mg of Ibuprofen (Advil) every 8 hours as needed. These larger strength tablets were called in but you also may use [id number]. - You also have been prescribed two days of Dexamethasone to help control swelling. Follow-up: 2 weeks Referrals: Sivakumar Crews MD [ [facility]] - Activity:: Activity as Tolerated Remove Dressings/Wound Care:: 24 hours Shower/Bathe:: 24 hours Diet:: As Tolerated Discharge Orders Discharge Orders: Discharge Order (Routine); Ordered 11/02/24 Ordered By: Sivakumar Crews
--- NOTE | 2024-11-02 07:33 | ROE_ITS ---
Operative Note Operative Note PRE-OP DIAGNOSIS: RIGHT Knee Arthrofibrosis s/p Replacement POST-OP DIAGNOSIS: same PROCEDURE: RIGHT Knee Manipulation Under Anesthesia SURGEON: Sivakumar Crews ANESTHESIA TYPE: General LMA/ETT Refer to Anesthesia Record ESTIMATED BLOOD LOSS: 0 PATHOLOGY: none sent TOURNIQUET TIME: 0 COMPLICATIONS: None Patient was transported to: PACU Patient's condition: stable Indications: Korey is a 59 year old male with psoriasis who is s/p knee replacement. Despite diligent work with physical therapy there has been continued stiffness. To assist with mobility, I offered a manipulation under anesthesia. I discussed the risks of the procedure to include bleeding, pain, recurrent stiffness, fracture. Despite these risks, he elects to proceed. Findings: Preoperative flexion = 90 Postoperative flexion = 120 Preoperative extension = 5 Postoperative extension = 5 Procedure Description: The patient was greeted in the preoperative holding area. Identity was confirmed and the correct side was identified and marked. The consent was reviewed the patient and signed. History and physical was updated. Korey was taken back to the operating room. The right side was identified as the correct side. A timeout was performed for safe surgery. A general anesthetic was administered. The knee was then prepped with ChloraPrep and an intra-articular injection of 15 cc of 0.25% bupivacaine was administered. Once a muscle relaxant was fully on board manipulation was performed. Pre- manipulation range of motion was noted. A gentle manipulation was performed first into flexion using a very small lever arm and adding gentle and progressive pressure to the tibia. There is audible and palpable crepitus with improvement in range of motion. This was cycled and repeated multiple times. The leg was then brought into extension and gentle anterior posterior pressure w as applied with a supported hand behind the proximal tibia and knee. This was brought back into flexion was once again manipulated with gentle and progressive pressure. Final range of motion numbers were recorded. A Band-Aid was applied to the injection site. He was awakened from anesthesia and taken to the PACU in stable condition. Date of Procedure: 11/02/24
[2024-11-02] MEDS: Bupivacaine 0.25% Pres-Free 30 ML VIAL (07:37)
[2024-11-02] MEDS: ePHEDrine 25 MG/5 ML Syringe IVP ×2 (07:54→07:59)
[2024-11-02] MEDS: fentaNYL 100 MCG/2 ML VIAL IVP (08:03)
--- NOTE | 2024-11-02 08:25 | W.ANESPOSTOP ---
Postoperative Evaluation Date, Time and Location Date Performed: 11/02/24 Time Performed: : Patient Location: PACU Vital Signs Most Recent Imported Vital Signs: Most Recent Vital Signs Temp Pulse Resp BP Pulse Ox 36.5 C 75 9 L 108/44 L 95 11/02/24 08:20 11/02/24 08:21 11/02/24 08:21 11/02/24 08:21 11/02/24 08:21 Pain Score Most Recent Pain Score: Most Recent Pain Score Pain Level 5 11/02/24 08:20 Assessment Mental Status: Awake (Alert & Oriented to Patient Baseline) Airway and Respiratory Function: Patent airway with normal (patient baseline) respiratory exam Cardiovascular Function: Hemodynamically Stable Hydration Status: Adequately Hydrated Nausea & Vomiting: No Nausea or Vomiting Pain: Pain is Moderate or Severe Postoperative Pain Management: Pain being addressed with medication Peripheral Nerve Block: Patient did not receive a nerve block
[2024-11-02] MEDS: oxyCODONE 5 MG TAB PO (08:41)
== END 2024-11-02 10:19 | disposition home or self-care (01) ==
PROVIDERS: PCP Nurse Practitioner Family; Visit Provider Student in an Organized Health Care Education/Training Program
PROC: (CPT 27570; principal; 2024-11-02 07:30)
DX: M24.661 Ankylosis, right knee (principal); Z96.651 Presence of right artificial knee joint
CPT/HCPCS: 27570; J0330; J0665; J1885; J2003; J2405; J2704; J3010

== ENCOUNTER 2025-03-08 03:05 | Outpatient (CLI) | payer BC, SELFPAY ==
[2025-03-08 08:28] LABS: ALT 50 U/L (16-63); AST 26 U/L (15-37); Albumin 3.9 g/dL (3.4-5.0); Alkaline Phosphatase 46 U/L (46-116); Anion Gap 12.3 mmol/L (3-11); BUN 17 mg/dL (7-18); Bilirubin, Total 0.6 mg/dL (0.2-1.0); CO2 23.7 mmol/L (21.0-32.0); Calcium 9.0 mg/dL (8.5-10.1); Calculated LDL 81 mg/dL (<100); Chloride 102 mmol/L (98-107); Cholesterol 155 mg/dL (<200); Estimated GFR 98.38 (mL/min/1.73m2); Glucose 152 mg/dL (74-106); HDL Cholesterol 52 mg/dL (>or=40); Potassium 4.3 mmol/L (3.5-5.1); Sodium 138 mmol/L (136-145); Total Protein 7.0 g/dL (6.4-8.2); Triglyceride 112 mg/dL (<150)
[2025-03-08 19:38] LABS: PSA, Screening 0.5 ng/mL (<=3.5)
== END 2025-03-08 03:06 | disposition home or self-care (01) ==
LOC: LBO 03:05
PROVIDERS: PCP Nurse Practitioner Family; Visit Provider Nurse Practitioner Family
DX: Z12.5 Encounter for screening for malignant neoplasm of prostate (principal); Z13.220 Encounter for screening for lipoid disorders; I10 Essential (primary) hypertension
CPT/HCPCS: 36415; 80053; 80061; 84153

== ENCOUNTER 2025-03-26 00:19 | Outpatient (CLI) | payer BC, SELFPAY ==
--- NOTE | 2025-03-26 06:00 | DI.MRI_ITS ---
Exam(s) MR CERVICAL SPINE WO EXAM: MR CERVICAL SPINE WO CLINICAL HISTORY: Worsening pain,CERVICAL STENOSIS SPINAL CANAL,M48.02 TECHNIQUE: Multiplanar multisequence MRI of the cervical spine was performed without intravenous contrast. COMPARISON: MR MR CERVICAL SPINE WO from 11/02/2020 FINDINGS: BONES: Vertebral body heights are maintained. Degenerative straightening of the normal cervical lordosis. Bone marrow signal intensity is within normal limits. CERVICAL CORD: Craniovertebral junction is unremarkable. The cervical cord is normal size and signal intensity. SOFT TISSUES: Unremarkable. C2-3: No significant disc bulging. Disc height maintained. No disc herniation or bulge is identified. No evidence of neural foraminal narrowing. No significant central canal stenosis. C3-4: The disc height is maintained. Small endplate osteophytes and mild circumferential disc bulging. No focal disc herniation identified. Moderate bilateral neural foraminal narrowing. No significant central canal stenosis. C4-5: Mild loss of disc height. Endplate osteophytes. No focal disc herniation is identified. Mild leftneural foraminal narrowing. Moderate right no significant central canal stenosis. C5-6: Moderate loss of disc height. Circumferentially projecting osteophytes. No focal disc herniation identified.Mild left neural foraminal narrowing. No significant central canal stenosis. C6-7: Severe loss of disc height. Circumferentially projecting endplate osteophytes. Broad-based disc bulging. No focal disc herniation is identified. Severe right and moderate left neural foraminal narrowing. Mild central canal stenosis. C7-T1: No disc herniation or bulge is identified. Facet osteophytes cause mild bilateral neural foraminal narrowing. No significant central canal stenosis. IMPRESSION: Multilevel degenerative disc changes and facet degenerative changes. Bilateral neural foraminal narrowing greatest at C6-7 on the right. The neural foraminal narrowing seems to have progressed somewhat when compared with 2020. No evidence of disc herniation. Mild central canal stenosis at C6-7. DATA REPOSITORY:
== END 2025-03-26 00:39 ==
LOC: DI 00:19
PROVIDERS: PCP Nurse Practitioner Family; Visit Provider Nurse Practitioner Family
DX: M48.02 Spinal stenosis, cervical region (principal)
CPT/HCPCS: 72141

== ENCOUNTER 2025-08-02 07:57 | Outpatient (CLI) | payer BC, SELFPAY ==
--- NOTE | 2025-08-02 07:45 | RT.EKG_ITS ---
APPROVED REPORT Exam: Resting ECG Reason for Exam: pre op Patient Location: O HR:78 bpm ECG Measurements Heart Rate 78 AXIS FL 189 P 46 QRSd 112 QRS -48 QT 379 T 46 QTc 432 Conclusion Sinus rhythm...normal P axis, V-rate 50- 99 Left anterior fascicular block...axis(240,-40), init forces inf Abnormal R-wave progression, late transition...QRS area<0 in V5/V6 Probable left ventricular hypertrophy...(RaVL+SV3)xQRSd >280
== END 2025-08-02 07:58 | disposition home or self-care (01) ==
PROVIDERS: PCP Nurse Practitioner Family; Visit Provider Nurse Practitioner Family
DX: Z01.818 Encounter for other preprocedural examination (principal); I10 Essential (primary) hypertension; I44.4 Left anterior fascicular block; I51.7 Cardiomegaly
CPT/HCPCS: 93010